=== PATIENT | male | born 1965 | race Caucasian/White ===

== ENCOUNTER 2016-12-24 09:20 | Inpatient (IN) | payer OTHER ==
[2016-12-24 10:20] VITALS: BMI 22.1
[2016-12-24] MEDS ORDERED: chlordiazePOXIDE HCL 25 MG CAPSULE PO SCH (11:00)
--- NOTE | 2016-12-24 11:26 | HP ---
CIWA Score - CIWA Score Nausea/Vomitin-No Nausea/No Vomiting Muscle Tremors: 4-Moderate,w/Arms Extend Anxiety: 4-Mod. Anxious/Guarded Agitation: 4-Moderately Restless Paroxysmal Sweats: 1-Minimal Palms Moist Orientation: 0-Oriented Tacttile Disturbances: 3-Moderate Itch/Numb/Burn Auditory Disturbances: 0-None Visual Disturbances: 0-None Headache: 0-None Present CIWA-Ar Total Score: 16 Admission ROS BHS - HPI Chief Complaint: DETOX TX FOR ALCOHOL DEPENDENCE Allergies/Adverse Reactions: Allergies Allergy/AdvReac Type Severity Reaction Status Date / Time No Known Allergies Allergy Verified 12/24/16 10:33 History of Present Illness: 51 Y/O H/M WITH A HX OF ALCOHOL,COCAINE AND MARIJUANA DEPENDENCE SEEKING DETOX [place] Exam Limitations: No Limitations - Ebola screening Have you traveled outside of the country in the last 21 days: No Have you had contact with anyone from an Ebola affected area: No Have you been sick,other than usual withdrawal symptoms: No Do you have a fever: No - Review of Systems Constitutional: Chills, Loss of Appetite, Night Sweats, Changes in sleep, Unintentional Wgt. Loss EENT: reports: Nose Congestion, Dental Problems (MISSING TEETH) Respiratory: reports: No Symptoms reported Cardiac: reports: Lightheadedness GI: reports: No Symptoms Reported : reports: No Symptoms Reported Musculoskeletal: reports: Back Pain, Joint Pain, Muscle Pain Integumentary: reports: No Symptoms Reported Neuro: reports: Headache, Tremors, Unsteady Gait, Dizziness Endocrine: reports: No Symptoms Reported Hematology: reports: No Symptoms Reported Psychiatric: reports: Orientated x3, Agitated, Anxious, Depressed Other Systems: Reviewed and Negative Patient History - Patient Medical History Hx Anemia: No Hx Asthma: No Hx Chronic Obstructive Pulmonary Disease (COPD): No Hx Cancer: No Hx Cardiac Disorders: No Hx Congestive Heart Failure: No Hx Hypertension: No Hx Hypercholesterolemia: Yes (no med) Hx Pacemaker: No HX Cerebrovascular Accident: No Hx Seizures: No Hx Dementia: No Hx Diabetes: Yes (NIDDM) Hx Gastrointestinal Disorders: No Hx Liver Disease: No Hx Genitourinary Disorders: No Hx Sexually Transmitted Disorders: No Hx Renal Disease (ESRD): No Hx Thyroid Disease: No Hx Human Immunodeficiency Virus (HIV): No (last tested 10/06) Hx Hepatitis C: No Hx Depression: No Hx Suicide Attempt: No Hx Bipolar Disorder: No Hx Schizophrenia: Yes (ON MED) - Patient Surgical History Past Surgical History: Yes Hx Neurologic Surgery: No Hx Cataract Extraction: No Hx Cardiac Surgery: No Hx Lung Surgery: No Hx Breast Surgery: No Hx Breast Biopsy: No Hx Abdominal Surgery: No Hx Appendectomy: No Hx Cholecystectomy: No Hx Genitourinary Surgery: No Hx Orthopedic Surgery: Yes (fx, left knee) Anesthesia Reaction: No - PPD History Previous Implant?: Yes Documented Results: Negative w/proof Implanted On Prior R Admission?: Yes Date: 12/31/15 Results: 0 mm PPD to be Administered?: Yes - Reproductive History Patient is a Female of Child Bearing Age (11 -55 yrs old): No (MALE) - Smoking Cessation Smoking history: Current every day smoker Have you smoked in the past 12 months: Yes Aproximately how many cigarettes per day: 20 Cigars Per Day: 0 Hx Chewing Tobacco Use: No Initiated information on smoking cessation: Yes 'Breaking Loose' booklet given: 12/24/16 - Substance & Tx. History Hx Alcohol Use: Yes (RUM/BEER) Hx Substance Use: Yes (CRACK) Substance Use Type: Alcohol, Cocaine Hx Substance Use Treatment: Yes ([facility]) - Substances Abused Crack Route: Smoking Frequency: Daily Amount used: $200 Age of first use: 21 Date of Last Use: 12/23/16 Alcohol-rum/beer Route: Oral Frequency: Daily Amount used: 2 pts./1-6 pk. Age of first use: 13 Date of Last Use: 12/23/16 Family Disease History - Family Disease History Family Disease History: Heart Disease: Mother ( at age 69) Admission Physical Exam S - Vital Signs Vital Signs: Vital Signs - 24 hr 12/24/16 10:16 Temperature 96.4 F L Pulse Rate 81 Respiratory 18 Rate Blood Pressure 121/74 - Physical General Appearance: Yes: Moderate Distress, Irritable, Anxious HEENTM: Yes: EOMI, Normocephalic, JAMILA, Pharynx Normal, Nasal Congestion Respiratory: Yes: Chest Non-Tender, Lungs Clear, Normal Breath Sounds, No Respiratory Distress Neck: Yes: No masses,lesions,Nodules, Supple, Trachea in good position Breast: Yes: Breast Exam Deferred Cardiology: Yes: Regular Rhythm, Regular Rate, S1, S2 Abdominal: Yes: Normal Bowel Sounds, Non Tender, Flat, Soft Genitourinary: Yes: Other (N/C) Back: Yes: Within Normal Limits Musculoskeletal: Yes: full range of Motion, Gait Steady Extremities: Yes: Normal Range of Motion, Non-Tender, Tremors Neurological: Yes: 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, Fully Oriented, Alert Integumentary: Yes: Dry, Warm Lymphatic: Yes: Within Normal Limits - Diagnostic (1) Alcohol dependence with uncomplicated withdrawal Current Visit: Yes Status: Acute (2) Cannabis dependence Current Visit: No Status: Suspected (3) H/O schizophrenia Current Visit: Yes Status: Chronic (4) DM (diabetes mellitus), type 2 Current Visit: Yes Status: Chronic Qualifiers: Diabetes mellitus complication status: without complication Qualified Code(s): E11.9 - Type 2 diabetes mellitus without complications (5) Hypercholesterolemia Current Visit: Yes Status: Chronic (6) Nicotine dependence Current Visit: Yes Status: Acute Qualifiers: Nicotine product type: cigarettes Substance use status: in withdrawal Qualified Code(s): F17.213 - Nicotine dependence, cigarettes, with withdrawal Cleared for Admission [facility] - Detox or Rehab [facility] Level of Care: Medically Managed Detox Regimen/Protocol: Librium [facility] Breath Alcohol Content Breath Alcohol Content: 0 Urine Drug Screen - Results Drug Screen Negative: No Urine Drug Screen Results: YOLANDA-Cocaine, BZO-Benzodiazepines
[2016-12-24] MEDS ORDERED: guaiFENesin/D-METHORPHAN HB 10 ML UNIT-DOSE CUPS PO PRN (11:33)
[2016-12-24] MEDS ORDERED: chlordiazePOXIDE HCL 25 MG CAPSULE PO PRN (11:33)
[2016-12-24] MEDS ORDERED: NICOTINE POLACRILEX 4 MG GUM BC PRN (11:33)
[2016-12-24] MEDS ORDERED: ACETAMINOPHEN 325 MG TABLET (FP) PO PRN (11:33)
[2016-12-24] MEDS ORDERED: LOPERAMIDE HCL 2 MG CAPSULE PO PRN (11:33)
[2016-12-24] MEDS ORDERED: MAGNESIUM HYDROX 2400MG/30ML ORAL SUSPENSION 30 ML CUP PO PRN (11:33)
[2016-12-24] MEDS ORDERED: hydrOXYzine PAMOATE 25 MG CAPSULE (FP) PO PRN (11:33)
[2016-12-24] MEDS ORDERED: IBUPROFEN 400 MG TABLET (FP) PO PRN (11:33)
[2016-12-24] MEDS ORDERED: MENTHOL/PHENOL 1 EACH UD MM PRN (11:33)
[2016-12-24] MEDS ORDERED: diphenhydrAMINE HCL 50 MG CAPSULE PO PRN (11:33)
[2016-12-24] MEDS ORDERED: MAGNESIUM CITRATE 300 ML BOTTLE PO PRN (11:33)
[2016-12-24] MEDS ORDERED: MAG HYDROX/AL HYDROX/SIMETH 30 ML UNIT-DOSE CUP PO PRN (11:33)
[2016-12-24] MEDS ORDERED: P-EPHED 60MG/TRIPROLIDI 2.5MG TABLET PO PRN (11:33)
[2016-12-24] MEDS ORDERED: chlordiazePOXIDE HCL 25 MG CAPSULE PO ONE (12:15)
[2016-12-24] MEDS: NICOTINE 21 MG/24 HOURS TOPICAL PATCH TD SCH (13:13)
[2016-12-24 14:59] LABS: HIV 1 & 2 AB NEGATIVE; HIV 1 AGp24 NEGATIVE
[2016-12-24] MEDS: chlordiazePOXIDE HCL 25 MG CAPSULE PO SCH ×2 (17:52→22:08)
[2016-12-24] MEDS: metFORMIN HCL 500 MG TABLET (FP) PO SCH (17:52)
[2016-12-24] MEDS: THIAMINE HCL 100 MG TABLET (FP) PO SCH (22:08)
[2016-12-25] MEDS: chlordiazePOXIDE HCL 25 MG CAPSULE PO SCH ×4 (05:29→22:20)
[2016-12-25] MEDS: metFORMIN HCL 500 MG TABLET (FP) PO SCH ×2 (07:41→17:48)
[2016-12-25 09:49] LABS: MCH 28.9 pg (25.7-33.7); MCHC 33.2 g/dl (32.0-35.9); MEAN CELL VOLUME 87.1 fl (80-96); MEAN PLT VOLUME 8.4 fl (7.5-11.1); PLATELET COUNT 204 K/MM3 (134-434); RDW 13.9 % (11.9-15.9); WHITE BLOOD COUNT 6.3 K/mm3 (4.0-10.0)
--- NOTE | 2016-12-25 10:07 | PN ---
BHS CIWA - CIWA Score Nausea/Vomitin Muscle Tremors: 2 Anxiety: 3 Agitation: 2 Paroxysmal Sweats: 3 Orientation: 0-Oriented Tacttile Disturbances: 2-Mild Itch/Numbness/Burn Auditory Disturbances: 0-None Visual Disturbances: 0-None Headache: 0-None Present CIWA-Ar Total Score: 14 BHS Progress Note (SOAP) Subjective: sweats, shakes ,bodyaches,palms rash r>l Objective: 12/25/16 10:05 Vital Signs Temperature 97.5 F L 12/25/16 06:25 Pulse Rate 83 12/25/16 06:25 Respiratory Rate 16 12/25/16 06:25 Blood Pressure 113/69 12/25/16 06:25 O2 Sat by Pulse Oximetry (%) Laboratory Tests 12/24/16 12/24/16 12/24/16 10:30 10:53 16:22 WBC RBC Hgb Hct MCV MCHC RDW Plt Count MPV POC Glucometer 169 117 HIV 1&2 Antibody Screen Negative HIV P24 Antigen Negative 12/25/16 12/25/16 05:28 06:00 WBC 6.3 D RBC 4.72 Hgb 13.6 Hct 41.1 MCV 87.1 MCHC 33.2 RDW 13.9 Plt Count 204 MPV 8.4 POC Glucometer 116 HIV 1&2 Antibody Screen HIV P24 Antigen pt aox3 in nad lying in bed pending labs Assessment: 12/25/16 10:06 witthdrawal sx's dm exfoliative rash Plan: cont. detox increase fluids daily bgm
[2016-12-25 10:09] LABS: ALBUMIN 3.9 g/dl (3.4-5.0); ALK PHOS 95 U/L (45-117); ANION GAP 11 (8-16); BILIRUBIN,TOTAL 0.6 mg/dL (0.2-1.0); CALCIUM 8.8 mg/dL (8.5-10.1); CO2 26 mmol/L (21-32); CREATININE 0.8 mg/dL (0.7-1.3); GLUCOSE,RANDOM 148 mg/dL (74-106); SGOT/AST 21 U/L (15-37); SGPT/ALT 46 U/L (12-78); TOT PROT 7.2 g/dl (6.4-8.2)
--- NOTE | 2016-12-25 10:30 | CONSULT ---
[facility] Psychiatric Consult - Data Date of interview: 12/25/16 Admission source: [facility] Identifying data: [facility] this 51 y/o male seeking detox treatment for alcohol,cocaine and cannabis dependence.Patient is single without children,homeless,unemployed and supported on [facility] benefits. Substance Abuse History: - Smoking Cessation. Smoking history: Current every day smoker. Have you smoked in the past 12 months: Yes. Aproximately how many cigarettes per day: 20. Cigars Per Day: 0. Hx Chewing Tobacco Use: No. Initiated information on smoking cessation: Yes. 'Breaking Loose' booklet given : 12/24/16. - Substance & Tx. History. Hx Alcohol Use: Yes (RUM/BEER). Hx Substance Use: Yes (CRACK). Substance Use Type: Alcohol, Cocaine. Hx Substance Use Treatment: Yes ([facility]). - Substances Abused. Crack. Route: Smoking. Frequency: Daily. Amount used: $200. Age of first use: 21. Date of Last Use: 12/23/16. Alcohol-rum/beer. Route: Oral. Frequency: Daily. Amount used: 2 pts./1-6 pk. Age of first use: 13. Date of Last Use: . Confirmed by patient. Medical History: Diabetes mellitus and hypercholesterolemia. Psychiatric History: Diagnosed with Schizophrenia (1985).History of multiple psychiatric hospitalizations.Prescribed geodon 40 mg/day + cogentin 2 mg/day + ambien 10 mg/hs.Mr Lagos sees a psychiatrist at [facility],a community drug program in the [place].Last took these medications two days ago.Patient denies history of suicide attempts. Physical/Sexual Abuse/Trauma History: Patient denies. Additional Comment: Urine Drug Screen Results: YOLANDA-Cocaine, BZO- Benzodiazepines.Noted. Mental Status Exam - Mental Status Exam Alert and Oriented to: Time, Place, Person Cognitive Function: Good Patient Appearance: Well Groomed Mood: Hopeful, Euthymic Affect: Appropriate, Normal Range Patient Behavior: Fatigued, Appropriate, Cooperative Speech Pattern: Clear (in georgian;speaks fair albanian ) Voice Loudness: Normal Thought Process: Goal Oriented Thought Disorder: Not Present Hallucinations: Denies Suicidal Ideation: Denies Homicidal Ideation: Denies Insight/Judgement: Poor Sleep: Fair Appetite: Good Muscle strength/Tone: Normal Gait/Station: Normal Psychiatric Findings - Problem List ([place] 1, 2,3) (1) Alcohol dependence with uncomplicated withdrawal Current Visit: Yes Status: Acute (2) Cannabis dependence Current Visit: Yes Status: Acute (3) Cocaine dependence Current Visit: Yes Status: Acute (4) Nicotine dependence Current Visit: Yes Status: Acute Qualifiers: Nicotine product type: cigarettes Substance use status: in withdrawal Qualified Code(s): F17.213 - Nicotine dependence, cigarettes, with withdrawal (5) Schizophrenia Current Visit: Yes Status: Chronic (6) DM (diabetes mellitus), type 2 Current Visit: Yes Status: Chronic Qualifiers: Diabetes mellitus complication status: without complication (7) Hypercholesterolemia Current Visit: Yes Status: Chronic - Initial Treatment Plan Initial Treatment Plan: Psychoeducation.Detoxification.Medications : geodon 40 mg po hs + cogentin 1 mg po hs.Side effects/benefits discussed with patient.Agrees with careplan.Observation.
[2016-12-25] MEDS: PRENATAL VITAMINS W/ FOLIC ACID TABLET (FP) PO SCH (10:56)
[2016-12-25] MEDS: NICOTINE 21 MG/24 HOURS TOPICAL PATCH TD SCH (10:58)
[2016-12-25 14:44] LABS: URINE APPEARANCE CLEAR; URINE BILIRUBIN NEGATIVE (NEGATIVE); URINE BLOOD NEGATIVE (NEGATIVE); URINE COLOR COLORLESS; URINE GLUCOSE (UA) NEGATIVE (NEGATIVE); URINE KETONE NEGATIVE (NEGATIVE); URINE LEUK ESTERASE NEGATIVE (NEGATIVE); URINE NITRITE NEGATIVE (NEGATIVE); URINE PROTEIN NEGATIVE (NEGATIVE); URINE UROBILINOGEN NEGATIVE E.U./dl (0.2-1.0)
[2016-12-25] MEDS: ZIPRASIDONE 40 MG CAPSULE (FP) PO SCH (22:20)
[2016-12-25] MEDS: THIAMINE HCL 100 MG TABLET (FP) PO SCH (22:20)
[2016-12-25] MEDS: BENZTROPINE MESYLATE 1 MG TABLET (FP) PO SCH (22:20)
[2016-12-25] MEDS: MINERAL OIL/PETROLAT/WATER TOPICAL CREAM 113 GM JAR TP SCH (22:22)
--- NOTE | 2016-12-25 23:40 | EKG ---
Test Reason : Blood Pressure : / mmHG Vent. Rate : 076 BPM Atrial Rate : 076 BPM P-R Int : 176 ms QRS Dur : 094 ms QT Int : 366 ms P-R-T Axes : 051 048 053 degrees QTc Int : 411 ms NORMAL SINUS RHYTHM POSSIBLE LEFT ATRIAL ENLARGEMENT SEPTAL INFARCT , AGE UNDETERMINED ABNORMAL ECG NO PREVIOUS ECGS AVAILABLE Confirmed by CHRIS SUMMERS, NIESHA ([id number]) on 12/25/2016 11:39:35 PM Referred By: Patel Shaver Confirmed By:NIESHA PEREZ MD
[2016-12-26] MEDS: chlordiazePOXIDE HCL 25 MG CAPSULE PO SCH ×2 (07:35→10:11)
[2016-12-26] MEDS: metFORMIN HCL 500 MG TABLET (FP) PO SCH ×2 (08:07→16:46)
[2016-12-26] MEDS ORDERED: ONDANSETRON *ODT* 4 MG TABLET SL PRN (09:50)
--- NOTE | 2016-12-26 09:50 | PN ---
[facility] CIWA - CIWA Score Nausea/Vomitin-No Nausea/No Vomiting Muscle Tremors: 3 Anxiety: 3 Agitation: 3 Paroxysmal Sweats: 3 Orientation: 0-Oriented Tacttile Disturbances: 0-None Auditory Disturbances: 0-None Visual Disturbances: 0-None Headache: 0-None Present CIWA-Ar Total Score: 12 S Progress Note (SOAP) Subjective: sweats nausea diarrhea Objective: 12/26/16 09:48 Vital Signs Temperature 97.7 F 12/26/16 06:00 Pulse Rate 71 12/26/16 06:00 Respiratory Rate 18 12/26/16 06:00 Blood Pressure 106/61 12/26/16 06:00 O2 Sat by Pulse Oximetry (%) Laboratory Tests 12/24/16 12/24/16 12/24/16 10:30 10:53 16:22 WBC RBC Hgb Hct MCV MCHC RDW Plt Count MPV Sodium Potassium Chloride Carbon Dioxide Anion Gap BUN Creatinine Creat Clearance w eGFR POC Glucometer 169 117 Random Glucose Calcium Total Bilirubin AST ALT Alkaline Phosphatase Total Protein Albumin Urine Color Urine Appearance Urine pH Ur Specific [place] Urine Protein Urine Glucose (UA) Urine Ketones Urine Blood Urine Nitrite Urine Bilirubin Urine Urobilinogen Ur Leukocyte Esterase RPR Titer HIV 1&2 Antibody Screen Negative HIV P24 Antigen Negative 12/25/16 12/25/16 12/25/16 05:28 06:00 06:00 WBC 6.3 D RBC 4.72 Hgb 13.6 Hct 41.1 MCV 87.1 MCHC 33.2 RDW 13.9 Plt Count 204 MPV 8.4 Sodium 136 Potassium 4.4 Chloride 99 Carbon Dioxide 26 D Anion Gap 11 BUN 17 Creatinine 0.8 Creat Clearance w eGFR > 60 POC Glucometer 116 Random Glucose 148 H Calcium 8.8 Total Bilirubin 0.6 D AST 21 D ALT 46 D Alkaline Phosphatase 95 Total Protein 7.2 Albumin 3.9 Urine Color Urine Appearance Urine pH Ur Specific [place] Urine Protein Urine Glucose (UA) Urine Ketones Urine Blood Urine Nitrite Urine Bilirubin Urine Urobilinogen Ur Leukocyte Esterase RPR Titer HIV 1&2 Antibody Screen HIV P24 Antigen 12/25/16 12/25/16 12/25/16 06:00 09:05 16:21 WBC RBC Hgb Hct MCV MCHC RDW Plt Count MPV Sodium Potassium Chloride Carbon Dioxide Anion Gap BUN Creatinine Creat Clearance w eGFR POC Glucometer 104 Random Glucose Calcium Total Bilirubin AST ALT Alkaline Phosphatase Total Protein Albumin Urine Color Colorless Urine Appearance Clear Urine pH 5.0 D Ur Specific [place] 1.009 Urine Protein Negative Urine Glucose (UA) Negative Urine Ketones Negative Urine Blood Negative Urine Nitrite Negative Urine Bilirubin Negative Urine Urobilinogen Negative Ur Leukocyte Esterase Negative RPR Titer Nonreactive HIV 1&2 Antibody Screen HIV P24 Antigen 12/26/16 06:25 WBC RBC Hgb Hct MCV MCHC RDW Plt Count MPV Sodium Potassium Chloride Carbon Dioxide Anion Gap BUN Creatinine Creat Clearance w eGFR POC Glucometer 86 Random Glucose Calcium Total Bilirubin AST ALT Alkaline Phosphatase Total Protein Albumin Urine Color Urine Appearance Urine pH Ur Specific [place] Urine Protein Urine Glucose (UA) Urine Ketones Urine Blood Urine Nitrite Urine Bilirubin Urine Urobilinogen Ur Leukocyte Esterase RPR Titer HIV 1&2 Antibody Screen HIV P24 Antigen awake/alert ambulating no acute distress Assessment: 12/26/16 09:50 withdrawal sx Plan: continue detox increase fluids immodium prn zofran prn
[2016-12-26] MEDS: PRENATAL VITAMINS W/ FOLIC ACID TABLET (FP) PO SCH (10:11)
[2016-12-26] MEDS: MINERAL OIL/PETROLAT/WATER TOPICAL CREAM 113 GM JAR TP SCH ×2 (10:12→22:24)
[2016-12-26] MEDS: NICOTINE 21 MG/24 HOURS TOPICAL PATCH TD SCH (10:12)
[2016-12-26] MEDS: chlordiazePOXIDE 5 MG CAPSULE PO SCH ×2 (16:48→22:26)
[2016-12-26] MEDS: BENZTROPINE MESYLATE 1 MG TABLET (FP) PO SCH (22:23)
[2016-12-26] MEDS: ZIPRASIDONE 40 MG CAPSULE (FP) PO SCH (22:23)
[2016-12-26] MEDS: THIAMINE HCL 100 MG TABLET (FP) PO SCH (22:23)
[2016-12-27] MEDS: chlordiazePOXIDE 5 MG CAPSULE PO SCH ×2 (06:21→10:21)
[2016-12-27] MEDS: metFORMIN HCL 500 MG TABLET (FP) PO SCH ×2 (07:22→17:32)
--- NOTE | 2016-12-27 09:35 | PN ---
BHS Progress Note (SOAP) Subjective: sweats Objective: 12/27/16 09:34 Vital Signs Temperature 97.6 F 12/27/16 06:24 Pulse Rate 83 12/27/16 06:24 Respiratory Rate 16 12/27/16 06:24 Blood Pressure 103/68 12/27/16 06:24 O2 Sat by Pulse Oximetry (%) awake/alert ambulating no acute distress Assessment: 12/27/16 09:34 withdrawal sx Plan: continue detox increase fluids d/c in am
[2016-12-27] MEDS: NICOTINE 21 MG/24 HOURS TOPICAL PATCH TD SCH (10:21)
[2016-12-27] MEDS: PRENATAL VITAMINS W/ FOLIC ACID TABLET (FP) PO SCH (10:21)
[2016-12-27] MEDS: MINERAL OIL/PETROLAT/WATER TOPICAL CREAM 113 GM JAR TP SCH ×2 (10:21→22:09)
[2016-12-27] MEDS: chlordiazePOXIDE HCL 10 MG CAPSULE PO SCH ×2 (17:32→22:09)
[2016-12-27] MEDS: BENZTROPINE MESYLATE 1 MG TABLET (FP) PO SCH (22:09)
[2016-12-27] MEDS: THIAMINE HCL 100 MG TABLET (FP) PO SCH (22:09)
[2016-12-27] MEDS: ZIPRASIDONE 40 MG CAPSULE (FP) PO SCH (22:09)
[2016-12-28] MEDS: metFORMIN HCL 500 MG TABLET (FP) PO SCH (06:45)
[2016-12-28] MEDS: chlordiazePOXIDE HCL 10 MG CAPSULE PO SCH (06:46)
--- NOTE | 2016-12-28 08:32 | DS ---
[facility] Detox Discharge Summary Admission Date: 12/24/16 Discharge Date: 12/28/16 - History Present History: Alcohol Dependence, Cannabis Dependence, Cocaine Dependence - Physical Exam Results Vital Signs: Vital Signs Temperature 98.1 F 12/28/16 06:37 Pulse Rate 81 12/28/16 06:37 Respiratory Rate 16 12/28/16 06:37 Blood Pressure 141/74 12/28/16 06:37 O2 Sat by Pulse Oximetry (%) - Treatment Hospital Course: Detox Protocol Followed, Detoxed Safely, Responded well, Discharged Condition Good, Rehab Referral Accepted - Medication Discharge Medications: Ambulatory Orders Metformin HCl [Glucophage -] 500 mg PO BID 01/07/14 Benztropine Mesylate [Cogentin -] 2 mg PO HS 12/24/16 Ziprasidone [Geodon -] 40 mg PO HS 12/24/16 Zolpidem Tartrate [Ambien] 10 mg PO HS 12/24/16 Benztropine Mesylate [Cogentin -] 1 mg PO HS #30 tablet 12/25/16 Ziprasidone [Geodon] 40 mg NR HS #30 capsule 12/25/16 - Diagnosis (1) Alcohol dependence with uncomplicated withdrawal Current Visit: Yes Status: Chronic (2) Cannabis dependence Current Visit: Yes Status: Chronic (3) Cocaine dependence Current Visit: Yes Status: Chronic Qualifiers: Substance use status: uncomplicated Qualified Code(s): F14.20 - Cocaine dependence, uncomplicated (4) Nicotine dependence Current Visit: Yes Status: Chronic Qualifiers: Nicotine product type: cigarettes Substance use status: uncomplicated Qualified Code(s): F17.210 - Nicotine dependence, cigarettes, uncomplicated (5) DM (diabetes mellitus), type 2 Current Visit: Yes Status: Chronic Qualifiers: Diabetes mellitus complication status: without complication (6) H/O schizophrenia Current Visit: Yes Status: Chronic (7) Hypercholesterolemia Current Visit: Yes Status: Chronic (8) Schizophrenia Current Visit: Yes Status: Chronic (9) Excoriation of scalp Current Visit: No Status: Acute Qualifiers: Encounter type: initial encounter Qualified Code(s): S00.01XA - Abrasion of scalp, initial encounter (10) Rash Current Visit: No Status: Acute (11) Syncope Current Visit: No Status: Acute - AMA Did Patient Leave Against Medical Advice: No
[2016-12-28 09:57] VITALS: BP 113/79; PULSE 79; TEMP 98.6
== END 2016-12-28 10:00 | disposition home or self-care (01) | DRG 774 ==
LOC: YASAS 09:20 → Y6N 11:36
PROVIDERS: ADMIT Internal Medicine Addiction Medicine; ATTEND Internal Medicine Addiction Medicine
PROC: HZ2ZZZZ Detoxification Services for Substance Abuse Treatment (ICD-10-PCS; principal; 2016-12-28)
DX: F10.230 Alcohol dependence with withdrawal, uncomplicated (principal); F14.20 Cocaine dependence, uncomplicated; F12.20 Cannabis dependence, uncomplicated; F17.210 Nicotine dependence, cigarettes, uncomplicated; F20.0 Paranoid schizophrenia; E11.9 Type 2 diabetes mellitus without complications; Z79.84 Long term (current) use of oral hypoglycemic drugs; E78.00 Pure hypercholesterolemia, unspecified; R21 Rash and other nonspecific skin eruption; R55 Syncope and collapse; S00.01XA Abrasion of scalp, initial encounter; X58.XXXA Exposure to other specified factors, initial encounter; Y93.89 Activity, other specified; Y92.89 Other specified places as the place of occurrence of the external cause
CPT/HCPCS: 36415; 71020-TC; 80053; 81003; 85027; 86593; 87389; 93005; 93010

== ENCOUNTER 2019-05-03 08:50 | Inpatient (IN) | payer OTHER ==
[2019-05-03 12:24] VITALS: BMI 20.8
--- NOTE | 2019-05-03 13:37 | HP ---
CIWA Score Nausea/Vomitin Muscle Tremors: 2 Anxiety: 2 Agitation: 3 Paroxysmal Sweats: 1-Minimal Palms Moist Orientation: 0-Oriented Tacttile Disturbances: 1-Very Mild Itch/Numbness Auditory Disturbances: 0-None Visual Disturbances: 0-None Headache: 2-Mild CIWA-Ar Total Score: 13 - Admission Criteria [facility] Guidelines: Admission for Medically Managed Detox: Requires at least one of the followin. CIWA greater than 12 2. Seizures within the past 24 hours 3. Delirium tremens within the past 24 hours 4. Hallucinations within the past 24 hours 5. Acute intervention needed for co occurring medical disorder 6. Acute intervention needed for co occurring psychiatric disorder 7. Severe withdrawal that cannot be handled at a lower level of care (continued vomiting, continued diarrhea, abnormal vital signs) requiring intravenous medication and/or fluids 8. Admission ROS S - HPI Chief Complaint: i need help to stop drinking alcohol Allergies/Adverse Reactions: Allergies Allergy/AdvReac Type Severity Reaction Status Date / Time No Known Allergies Allergy Verified 05/03/19 12:15 History of Present Illness: this 53 years old male with alcohol dependence,seeking detox,withdrawal symptom, multiple admissions in detox,last 2017 denied seizure syncope has callus right big toe seen [place] last night history of type 2 dm nicotine dependence 1 pack/day homeless,living on SSI, history of achizophrenia no significant period of sobriety Exam Limitations: No Limitations - Ebola screening Have you traveled outside of the country in the last 21 days: No (N) Have you had contact with anyone from an Ebola affected area: No Do you have a fever: No - Review of Systems Constitutional: Loss of Appetite, Malaise, Night Sweats, Changes in sleep, Weakness, Unintentional Wgt. Loss EENT: reports: Nose Congestion Respiratory: reports: No Symptoms reported Cardiac: reports: No Symptoms Reported GI: reports: Nausea, Abdominal cramping : reports: No Symptoms Reported Musculoskeletal: reports: Back Pain, Muscle Pain Integumentary: reports: Dryness Neuro: reports: Headache, Tremors Endocrine: reports: No Symptoms Reported Hematology: reports: No Symptoms Reported Psychiatric: reports: No Sypmtoms Reported, Judgement Intact, Mood/Affect Appropiate, Orientated x3, other (schizophrenia) Patient History - Patient Medical History Hx Anemia: No Hx Asthma: No Hx Chronic Obstructive Pulmonary Disease (COPD): No Hx Cancer: No Hx Cardiac Disorders: No Hx Congestive Heart Failure: No Hx Hypertension: No Hx Hypercholesterolemia: Yes (no med) Hx Pacemaker: No HX Cerebrovascular Accident: No Hx Seizures: No Hx Dementia: No Hx Diabetes: Yes (NIDDM) Hx Gastrointestinal Disorders: No Hx Liver Disease: No Hx Genitourinary Disorders: No Hx Sexually Transmitted Disorders: No Hx Renal Disease (ESRD): No Hx Thyroid Disease: No Hx Human Immunodeficiency Virus (HIV): No (last tested 2017 ) Hx Hepatitis C: No Hx Depression: No Hx Suicide Attempt: No Hx Bipolar Disorder: No Hx Schizophrenia: Yes (ON MED) Other Medical History: no suicidal,no homicidal - Patient Surgical History Past Surgical History: Yes Hx Neurologic Surgery: No Hx Cataract Extraction: No Hx Cardiac Surgery: No Hx Lung Surgery: No Hx Breast Surgery: No Hx Breast Biopsy: No Hx Abdominal Surgery: No Hx Appendectomy: No Hx Cholecystectomy: No Hx Genitourinary Surgery: No Hx Section: No Hx Orthopedic Surgery: Yes (fx, left knee) Anesthesia Reaction: No - PPD History Date: 12/26/16 Results: 0 mm - Smoking Cessation Smoking history: Current every day smoker Have you smoked in the past 12 months: Yes Aproximately how many cigarettes per day: 20 Cigars Per Day: 0 Hx Chewing Tobacco Use: No Initiated information on smoking cessation: Yes 'Breaking Loose' booklet given: 05/03/19 - Substance & Tx. History Hx Alcohol Use: Yes Hx Substance Use: No Substance Use Type: Alcohol Hx Substance Use Treatment: Yes (2018 did not recall facility) - Substances abused Alcohol Substance route: Oral Frequency: Daily Amount used: 1 pint of Bacardi/day Age of first use: 21 Date of last use: 05/02/19 Family Disease History - Family Disease History Family Disease History: Heart Disease: Mother ( at age 69) Admission Physical Exam BHS - Vital Signs Vital Signs: Vital Signs - 24 hr 05/03/19 12:21 Temperature 98.0 F Pulse Rate 89 Respiratory 18 Rate Blood Pressure 105/72 - Physical General Appearance: Yes: Moderate Distress, Tremorous, Irritable, Sweating, Anxious HEENTM: Yes: Normal ENT Inspection, JAMILA, Pharynx Normal Respiratory: Yes: Lungs Clear, Normal Breath Sounds, No Respiratory Distress Neck: Yes: No masses,lesions,Nodules, Supple, Trachea in good position Breast: Yes: Within Normal Limits Cardiology: Yes: Within Normal Limits, Regular Rhythm, Regular Rate, S1, S2 Abdominal: Yes: Within Normal Limits, Normal Bowel Sounds, Non Tender, Flat, Soft Genitourinary: Yes: Within Normal Limits Back: Yes: Muscle Spasm Musculoskeletal: Yes: Back pain, Muscle Pain Extremities: Yes: Tremors, Other (scar in left knee) Neurological: Yes: Within Normal Limits, 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, Fully Oriented, Alert, Motor Strength 5/5 Integumentary: Yes: Dry - Diagnostic (1) Syncope Current Visit: No Status: Acute (2) Alcohol dependence with uncomplicated withdrawal Current Visit: No Status: Chronic (3) DM (diabetes mellitus), type 2 Current Visit: No Status: Chronic Qualifiers: Diabetes mellitus complication status: without complication (4) H/O schizophrenia Current Visit: No Status: Chronic (5) Hypercholesterolemia Current Visit: No Status: Chronic (6) Nicotine dependence Current Visit: No Status: Chronic Qualifiers: Nicotine product type: cigarettes Substance use status: uncomplicated Qualified Code(s): F17.210 - Nicotine dependence, cigarettes, uncomplicated Cleared for Admission S - Detox or Rehab [facility] Level of Care: Medically Managed Detox Regimen/Protocol: Librium Breathalyzer - Breathalyzer Breathalyzer: 0 Urine Drug Screen - Test Device Lot number: [id number] Expiration date: 01/20/21 - Control Is test valid?: Yes - Results Drug screen NEGATIVE: No Urine drug screen results: MOP-Opiates Inpatient Rehab Admission - Rehab Decision to Admit Inpatient rehab admission?: No
[2019-05-03] MEDS ORDERED: MAG HYDROX/AL HYDROX/SIMETH 30 ML UNIT-DOSE CUP PO PRN (13:43)
[2019-05-03] MEDS ORDERED: METHOCARBAMOL 500 MG TABLET PO PRN (13:43)
[2019-05-03] MEDS ORDERED: hydrOXYzine PAMOATE 25 MG CAPSULE (FP) PO PRN (13:43)
[2019-05-03] MEDS ORDERED: ACETAMINOPHEN 325 MG TABLET (FP) PO PRN ×2 (13:43)
[2019-05-03] MEDS ORDERED: BISMUTH SUBSALICYLATE 524 MG/30 ML UD PO PRN (13:43)
[2019-05-03] MEDS ORDERED: MENTHOL/PHENOL 1 EACH UD MM PRN (13:43)
[2019-05-03] MEDS ORDERED: IBUPROFEN 400 MG TABLET (FP) PO PRN (13:43)
[2019-05-03] MEDS ORDERED: MELATONIN 5 MG TABLETS PO PRN (13:43)
[2019-05-03] MEDS ORDERED: MAGNESIUM HYDROX 2400MG/30ML ORAL SUSPENSION 30 ML CUP PO PRN (13:43)
[2019-05-03] MEDS ORDERED: MAGNESIUM CITRATE 300 ML BOTTLE PO PRN (13:43)
[2019-05-03] MEDS ORDERED: chlordiazePOXIDE HCL 25 MG CAPSULE PO PRN (13:43)
[2019-05-03] MEDS ORDERED: NICOTINE 21 MG/24 HOURS TOPICAL PATCH TD SCH (14:00)
[2019-05-03] MEDS: chlordiazePOXIDE HCL 25 MG CAPSULE PO SCH ×3 (18:37→23:22)
[2019-05-03] MEDS ORDERED: THIAMINE HCL 100 MG TABLET (FP) PO SCH (22:00)
[2019-05-04 06:19] VITALS: BP 130/77; PULSE 77; TEMP 98.9
[2019-05-04] MEDS: chlordiazePOXIDE HCL 25 MG CAPSULE PO SCH (07:57)
[2019-05-04] MEDS ORDERED: PRENATAL VITAMINS W/ FOLIC ACID TABLET (FP) PO SCH (10:00)
[2019-05-04 10:26] LABS: ALBUMIN 3.9 g/dl (3.4-5.0); BILIRUBIN,TOTAL 0.7 mg/dL (0.2-1); BLOOD UREA NITROGEN 12.9 mg/dL (7-18); CALCIUM 8.9 mg/dL (8.5-10.1); CREATININE 0.7 mg/dL (0.55-1.3); POTASSIUM 4.4 mmol/L (3.5-5.1); TOT PROT 7.3 g/dl (6.4-8.2)
[2019-05-04 12:19] LABS: HEMOGLOBIN 14.3 GM/dL (11.7-16.9); MCH 29.1 pg (25.7-33.7); MCHC 33.2 g/dl (32.0-35.9); MEAN CELL VOLUME 87.6 fl (80-96); MEAN PLT VOLUME 8.1 fl (7.5-11.1); PLATELET COUNT 209 K/MM3 (134-434); RBC 4.91 M/mm3 (4.00-5.60); RDW 14.5 % (11.9-15.9); WHITE BLOOD COUNT 9.6 K/mm3 (4.0-10.0)
[2019-05-04 13:27] LABS: HYALINE CASTS 18 /lpf (0-8); PH,URINE 5.5 (5.0-8.0); URINE APPEARANCE CLEAR; URINE BACTERIA 19.1 /hpf (NEGATIVE); URINE BILIRUBIN NEGATIVE (NEGATIVE); URINE COLOR YELLOW; URINE GLUCOSE (UA) NEGATIVE (NEGATIVE); URINE KETONE NEGATIVE (NEGATIVE); URINE LEUK ESTERASE TRACE (NEGATIVE); URINE NITRITE NEGATIVE (NEGATIVE); URINE PROTEIN NEGATIVE (NEGATIVE); URINE RBC 1 /hpf (0-4); URINE UROBILINOGEN 0.2 mg/dL (0.2-1.0); URINE WBC 5 /hpf (0-5)
--- NOTE | 2019-05-04 16:28 | PN ---
S CIWA - CIWA Score Nausea/Vomitin-Mild Nausea/No Vomiting Muscle Tremors: 3 Anxiety: 5 Agitation: 4-Moderately Restless Paroxysmal Sweats: 3 Orientation: 0-Oriented Tacttile Disturbances: 0-None Auditory Disturbances: 0-None Visual Disturbances: 0-None Headache: 0-None Present CIWA-Ar Total Score: 16 BHS Progress Note (SOAP) Subjective: Tremors, Anxious, Agitated, Sweating. Objective: PATIENT A & O X 3, OBSERVED AMBULATING ON UNIT UNASSISTED. IN NO ACUTE DISTRESS. 05/04/19 16:27 Vital Signs Temperature 98.9 F 05/04/19 06:00 Pulse Rate 77 05/04/19 06:00 Respiratory Rate 16 05/04/19 06:00 Blood Pressure 130/77 05/04/19 06:00 O2 Sat by Pulse Oximetry (%) Laboratory Tests 05/03/19 05/03/19 05/04/19 13:23 17:01 07:00 WBC 9.6 RBC 4.91 Hgb 14.3 Hct 43.0 MCV 87.6 MCH 29.1 MCHC 33.2 RDW 14.5 Plt Count 209 MPV 8.1 Sodium Potassium Chloride Carbon Dioxide Anion Gap BUN Creatinine Est GFR (CKD-EPI)AfAm Est GFR (CKD-EPI)NonAf POC Glucometer 81 132 Random Glucose Calcium Total Bilirubin AST ALT Alkaline Phosphatase Total Protein Albumin Urine Color Urine Appearance Urine pH Ur Specific [place] Urine Protein Urine Glucose (UA) Urine Ketones Urine Blood Urine Nitrite Urine Bilirubin Urine Urobilinogen Ur Leukocyte Esterase Urine WBC (Auto) Urine RBC (Auto) Urine Casts (Auto) U Epithel Cells (Auto) Urine Bacteria (Auto) RPR Titer 05/04/19 05/04/19 05/04/19 07:00 07:00 10:10 WBC RBC Hgb Hct MCV MCH MCHC RDW Plt Count MPV Sodium 140 Potassium 4.4 Chloride 104 Carbon Dioxide 32 Anion Gap 4 L BUN 12.9 Creatinine 0.7 Est GFR (CKD-EPI)AfAm 125.75 Est GFR (CKD-EPI)NonAf 108.50 POC Glucometer Random Glucose 113 H Calcium 8.9 Total Bilirubin 0.7 AST 18 ALT 24 Alkaline Phosphatase 70 Total Protein 7.3 Albumin 3.9 Urine Color Yellow Urine Appearance Clear Urine pH 5.5 Ur Specific [place] 1.025 Urine Protein Negative Urine Glucose (UA) Negative Urine Ketones Negative Urine Blood Negative Urine Nitrite Negative Urine Bilirubin Negative Urine Urobilinogen 0.2 Ur Leukocyte Esterase Trace Urine WBC (Auto) 5 Urine RBC (Auto) 1 Urine Casts (Auto) 18 U Epithel Cells (Auto) 3.0 Urine Bacteria (Auto) 19.1 RPR Titer Nonreactive LABS NOTED. Assessment: 05/04/19 16:28 WITHDRAWAL SYMPTOMS. Plan: CONTINUE DETOX.
--- NOTE | 2019-05-04 16:32 | DS ---
[facility] Detox Discharge Summary Admission Date: 05/03/19 Discharge Date: 05/04/19 - History Present History: Alcohol Dependence Additional Comments: DESPITE EFFORTS BY PEN AND PENCIL REPAIRER AND BY NURSING STAFF TO ADDRESS PATIENT'S MEDICAL NEEDS / CONCERNS, PATIENT DOES NOT WISH TO REMAIN TO COMPLETE DETOX REGIMEN. RISKS OF LEAVING DETOX UNIT AGAINST MEDICAL ADVICE AND PRIOR TO COMPLETION OF DETOX REGIMEN EXPLAINED TO PATIENT. PATIENT ADVISED TO GO IMMEDIATELY TO NEAREST ER SHOULD ANY INTOLERABLE WITHDRAWAL / DETOX SYMPTOMS DEVELOP AT ANY TIME. PATIENT VERBALIZED UNDERSTANDING OF ALL INFORMATION / RECOMMENDATIONS PRESENTED TO HIM PRIOR TO DEPARTURE FROM DETOX UNIT. PATIENT LEFT DETOX UNIT IN STABLE MEDICAL CONDITION. Pertinent Past History: Hypercholesterolemia, Type II DM, Schizophrenia, History Of Syncope, Nicotine Dependence. - Physical Exam Results Vital Signs: Vital Signs Temperature 98.9 F 05/04/19 06:00 Pulse Rate 77 05/04/19 06:00 Respiratory Rate 16 05/04/19 06:00 Blood Pressure 130/77 05/04/19 06:00 O2 Sat by Pulse Oximetry (%) Pertinent Admission Physical Exam Findings: WITHDRAWAL SYMPTOMS. Laboratory Tests 05/03/19 05/03/19 05/04/19 13:23 17:01 07:00 WBC 9.6 RBC 4.91 Hgb 14.3 Hct 43.0 MCV 87.6 MCH 29.1 MCHC 33.2 RDW 14.5 Plt Count 209 MPV 8.1 Sodium Potassium Chloride Carbon Dioxide Anion Gap BUN Creatinine Est GFR (CKD-EPI)AfAm Est GFR (CKD-EPI)NonAf POC Glucometer 81 132 Random Glucose Calcium Total Bilirubin AST ALT Alkaline Phosphatase Total Protein Albumin Urine Color Urine Appearance Urine pH Ur Specific [place] Urine Protein Urine Glucose (UA) Urine Ketones Urine Blood Urine Nitrite Urine Bilirubin Urine Urobilinogen Ur Leukocyte Esterase Urine WBC (Auto) Urine RBC (Auto) Urine Casts (Auto) U Epithel Cells (Auto) Urine Bacteria (Auto) RPR Titer 05/04/19 05/04/19 05/04/19 07:00 07:00 10:10 WBC RBC Hgb Hct MCV MCH MCHC RDW Plt Count MPV Sodium 140 Potassium 4.4 Chloride 104 Carbon Dioxide 32 Anion Gap 4 L BUN 12.9 Creatinine 0.7 Est GFR (CKD-EPI)AfAm 125.75 Est GFR (CKD-EPI)NonAf 108.50 POC Glucometer Random Glucose 113 H Calcium 8.9 Total Bilirubin 0.7 AST 18 ALT 24 Alkaline Phosphatase 70 Total Protein 7.3 Albumin 3.9 Urine Color Yellow Urine Appearance Clear Urine pH 5.5 Ur Specific [place] 1.025 Urine Protein Negative Urine Glucose (UA) Negative Urine Ketones Negative Urine Blood Negative Urine Nitrite Negative Urine Bilirubin Negative Urine Urobilinogen 0.2 Ur Leukocyte Esterase Trace Urine WBC (Auto) 5 Urine RBC (Auto) 1 Urine Casts (Auto) 18 U Epithel Cells (Auto) 3.0 Urine Bacteria (Auto) 19.1 RPR Titer Nonreactive LABS NOTED. - Medication Discharge Medications: Ambulatory Orders metFORMIN HCL [Glucophage -] 500 mg PO BID 01/07/14 Benztropine Mesylate [Cogentin -] 2 mg PO HS 12/24/16 Ziprasidone [Geodon -] 40 mg PO HS 12/24/16 - Diagnosis (1) Syncope Status: Acute Qualifiers: Syncope type: unspecified Qualified Code(s): R55 - Syncope and collapse (2) Alcohol dependence with uncomplicated withdrawal Status: Acute (3) DM (diabetes mellitus), type 2 Status: Chronic Qualifiers: Diabetes mellitus residential insulin use: without exterminator use Diabetes mellitus complication status: without complication Qualified Code(s): E11.9 - Type 2 diabetes mellitus without complications (4) H/O schizophrenia Status: Chronic (5) Hypercholesterolemia Status: Chronic (6) Nicotine dependence Status: Chronic Qualifiers: Nicotine product type: cigarettes Substance use status: uncomplicated Qualified Code(s): F17.210 - Nicotine dependence, cigarettes, uncomplicated - AMA Did Patient Leave Against Medical Advice: Yes (PATIENT DID NOT WISH TO REMAIN TO COMPLETE DETOX REGIMEN.)
[2019-05-05] MEDS ORDERED: chlordiazePOXIDE HCL 25 MG CAPSULE PO SCH (05:00)
[2019-05-06] MEDS ORDERED: chlordiazePOXIDE HCL 10 MG CAPSULE PO PRN
[2019-05-06] MEDS ORDERED: chlordiazePOXIDE HCL 10 MG CAPSULE PO SCH (05:00)
[2019-05-07] MEDS ORDERED: chlordiazePOXIDE HCL 10 MG CAPSULE PO SCH (05:00)
[2019-05-08] MEDS ORDERED: chlordiazePOXIDE HCL 10 MG CAPSULE PO ONE (05:00)
== END 2019-05-04 09:05 | disposition left against medical advice (07) | DRG 770 ==
LOC: YASAS 08:50 → Y6N 14:09
PROVIDERS: ADMIT Surgery; ATTEND Surgery
PROC: HZ2ZZZZ Detoxification Services for Substance Abuse Treatment (ICD-10-PCS; principal; 2019-05-03)
DX: F10.230 Alcohol dependence with withdrawal, uncomplicated (principal); F17.210 Nicotine dependence, cigarettes, uncomplicated; F20.9 Schizophrenia, unspecified; E11.9 Type 2 diabetes mellitus without complications; E78.00 Pure hypercholesterolemia, unspecified; Z79.84 Long term (current) use of oral hypoglycemic drugs; Z59.0 Homelessness
CPT/HCPCS: 36415; 80053; 81003; 82962; 85027; 86593

== ENCOUNTER 2019-05-16 09:05 | Inpatient (IN) | payer OTHER ==
[2019-05-16 09:41] VITALS: BMI 21.2
--- NOTE | 2019-05-16 10:22 | HP ---
CIWA Score Nausea/Vomitin-Mild Nausea/No Vomiting Muscle Tremors: 2 Anxiety: 2 Agitation: 0-Normal Activity Paroxysmal Sweats: 1-Minimal Palms Moist Orientation: 0-Oriented Tacttile Disturbances: 2-Mild Itch/Numbness/Burn Auditory Disturbances: 2-Mild Harshness/Frighten Visual Disturbances: 2-Mild Sensitivity Headache: 2-Mild CIWA-Ar Total Score: 14 - Admission Criteria OASAS Guidelines: Admission for Medically Managed Detox: Requires at least one of the followin. CIWA greater than 12 2. Seizures within the past 24 hours 3. Delirium tremens within the past 24 hours 4. Hallucinations within the past 24 hours 5. Acute intervention needed for co occurring medical disorder 6. Acute intervention needed for co occurring psychiatric disorder 7. Severe withdrawal that cannot be handled at a lower level of care (continued vomiting, continued diarrhea, abnormal vital signs) requiring intravenous medication and/or fluids 8. Admission ROS [facility] Chief Complaint: WITHDRAWAL SYMPTOMS Allergies/Adverse Reactions: Allergies Allergy/AdvReac Type Severity Reaction Status Date / Time No Known Allergies Allergy Verified 05/16/19 09:29 History of Present Illness: 53 Y.O. MAN AN EXTENSIVE HISTORY OF ALCOHOL DEPENDENCE IS HERE SEEKING DETOX SERVICES. HE WAS LAST HERE ON 05/03/19 BUT LEFT AMA AFTER ONE DAY. HIS LONGEST PERIOD OF SOBRIETY HAS BEEN 1 YEAR. HE WAS EVALUATED AND TREATED FOR ALCOHOL INTOXICATION YESTERDAY AT [facility] AND WAS TRANSFERRED HERE FOR DETOX SERVICES. Exam Limitations: No Limitations - Ebola screening Have you traveled outside of the country in the last 21 days: No (N) Have you had contact with anyone from an Ebola affected area: No Do you have a fever: No - Review of Systems Constitutional: Diaphoresis, Weakness EENT: reports: Blurred Vision, Double Vision Respiratory: reports: Cough Cardiac: reports: No Symptoms Reported GI: reports: Diarrhea, Nausea : reports: No Symptoms Reported Musculoskeletal: reports: Back Pain Integumentary: reports: No Symptoms Reported Neuro: reports: Headache, Numbness, Tingling, Tremors Endocrine: reports: No Symptoms Reported Hematology: reports: No Symptoms Reported Psychiatric: reports: Orientated x3 Other Systems: Reviewed and Negative Patient History - Patient Medical History Hx Anemia: No Hx Asthma: No Hx Chronic Obstructive Pulmonary Disease (COPD): Yes (Emphysema) Hx Cancer: No Hx Cardiac Disorders: No Hx Congestive Heart Failure: No Hx Hypertension: No Hx Hypercholesterolemia: Yes (Not taking medications ) Hx Pacemaker: No HX Cerebrovascular Accident: No Hx Seizures: No Hx Dementia: No Hx Diabetes: Yes (NIDDM) Hx Gastrointestinal Disorders: No Hx Liver Disease: No Hx Genitourinary Disorders: No Hx Sexually Transmitted Disorders: No Hx Renal Disease (ESRD): No Hx Thyroid Disease: No Hx Human Immunodeficiency Virus (HIV): No (last tested 2017 ) Hx Hepatitis C: No Hx Depression: No Hx Suicide Attempt: No Hx Bipolar Disorder: No Hx Schizophrenia: Yes (ON MED) - Patient Surgical History Past Surgical History: Yes Hx Neurologic Surgery: No Hx Cataract Extraction: No Hx Cardiac Surgery: No Hx Lung Surgery: No Hx Breast Surgery: No Hx Breast Biopsy: No Hx Abdominal Surgery: No Hx Appendectomy: No Hx Cholecystectomy: No Hx Genitourinary Surgery: No Hx Section: No Hx Orthopedic Surgery: Yes (fx, left knee) Anesthesia Reaction: No - PPD History Previous Implant?: Yes Documented Results: Positive w/proof Implanted On Prior R Admission?: Yes Date: 12/26/16 Results: 0 mm PPD to be Administered?: No - Reproductive History Patient is a Female of Child Bearing Age (11 -55 yrs old): No - Smoking Cessation Smoking history: Current every day smoker Have you smoked in the past 12 months: Yes Aproximately how many cigarettes per day: 20 Cigars Per Day: 0 Hx Chewing Tobacco Use: No Initiated information on smoking cessation: Yes 'Breaking Loose' booklet given: 05/16/19 - Substance & Tx. History Hx Alcohol Use: Yes Hx Substance Use: No Substance Use Type: Alcohol Hx Substance Use Treatment: Yes (Multiple detox admissions. Last was 05/04/19. ) - Substances abused Alcohol Substance route: Oral Frequency: Daily Amount used: 1 pint of Bacardi/day, 10 Espino/beer bottles Age of first use: 21 Date of last use: 05/15/19 Cocaine Substance route: Inhalation Frequency: Daily Amount used: 2 bags Age of first use: 7 Date of last use: 05/15/19 Family Disease History - Family Disease History Family Disease History: Heart Disease: Mother ( at age 69) Admission Physical Exam BHS - Vital Signs Vital Signs: Vital Signs - 24 hr 05/16/19 09:35 Temperature 97.6 F Pulse Rate 75 Respiratory 14 Rate Blood Pressure 132/89 - Physical General Appearance: Yes: Tremorous, Sweating, Anxious HEENTM: Yes: Hearing grossly Normal, Normocephalic, Normal Voice Respiratory: Yes: Chest Non-Tender, Lungs Clear, Normal Breath Sounds, No Respiratory Distress, No Accessory Muscle Use Neck: Yes: No masses,lesions,Nodules Breast: Yes: Breast Exam Deferred Cardiology: Yes: Regular Rhythm, Regular Rate Abdominal: Yes: Normal Bowel Sounds, Non Tender, Flat Genitourinary: Yes: Within Normal Limits Back: Yes: Within Normal Limits, Normal Inspection Musculoskeletal: Yes: full range of Motion, Gait Steady, Pelvis Stable Extremities: Yes: Normal Capillary Refill, Normal Inspection Neurological: Yes: Alert, Normal Response Integumentary: Yes: Normal Color, Dry Lymphatic: Yes: Within Normal Limits - Diagnostic (1) Emphysema lung Current Visit: Yes Status: Chronic (2) Alcohol dependence with uncomplicated withdrawal Current Visit: Yes Status: Chronic (3) DM (diabetes mellitus), type 2 Current Visit: Yes Status: Chronic Qualifiers: Diabetes mellitus termite inspector insulin use: without retirement use Diabetes mellitus complication status: without complication Qualified Code(s): E11.9 - Type 2 diabetes mellitus without complications (4) Hypercholesterolemia Current Visit: Yes Status: Chronic (5) Nicotine dependence Current Visit: Yes Status: Chronic Qualifiers: Nicotine product type: cigarettes Substance use status: uncomplicated Qualified Code(s): F17.210 - Nicotine dependence, cigarettes, uncomplicated Cleared for Admission [facility] - Detox or Rehab [facility] Level of Care: Medically Managed Detox Regimen/Protocol: Librium Breathalyzer - Breathalyzer Breathalyzer: 0 Urine Drug Screen - Test Device Lot number: [id number] Expiration date: 02/20/21 - Control Is test valid?: Yes - Results Drug screen NEGATIVE: Yes Urine drug screen results: MOP-Opiates Inpatient Rehab Admission - Rehab Decision to Admit Inpatient rehab admission?: No
[2019-05-16] MEDS ORDERED: hydrOXYzine PAMOATE 25 MG CAPSULE (FP) PO PRN (10:31)
[2019-05-16] MEDS ORDERED: MENTHOL/PHENOL 1 EACH UD MM PRN (10:31)
[2019-05-16] MEDS ORDERED: MAGNESIUM HYDROX 2400MG/30ML ORAL SUSPENSION 30 ML CUP PO PRN (10:31)
[2019-05-16] MEDS ORDERED: IBUPROFEN 400 MG TABLET (FP) PO PRN (10:31)
[2019-05-16] MEDS ORDERED: METHOCARBAMOL 500 MG TABLET PO PRN (10:31)
[2019-05-16] MEDS ORDERED: BISMUTH SUBSALICYLATE 524 MG/30 ML UD PO PRN (10:31)
[2019-05-16] MEDS ORDERED: chlordiazePOXIDE HCL 25 MG CAPSULE PO PRN (10:31)
[2019-05-16] MEDS ORDERED: MELATONIN 5 MG TABLETS PO PRN (10:31)
[2019-05-16] MEDS ORDERED: MAG HYDROX/AL HYDROX/SIMETH 30 ML UNIT-DOSE CUP PO PRN (10:31)
[2019-05-16] MEDS ORDERED: ACETAMINOPHEN 325 MG TABLET (FP) PO PRN ×2 (10:31)
[2019-05-16] MEDS ORDERED: NICOTINE POLACRILEX 2 MG GUM BUC PRN (10:31)
[2019-05-16] MEDS ORDERED: MAGNESIUM CITRATE 300 ML BOTTLE PO PRN (10:31)
[2019-05-16] MEDS ORDERED: chlordiazePOXIDE HCL 25 MG CAPSULE PO ONE (11:45)
[2019-05-16] MEDS: chlordiazePOXIDE HCL 25 MG CAPSULE PO SCH ×3 (12:32→22:31)
[2019-05-16] MEDS ORDERED: INSULIN SLIDING SCALE (NOVOLOG) 1 VIAL SQ SCH (16:30)
[2019-05-16] MEDS: metFORMIN HCL 500 MG TABLET (FP) PO SCH (16:45)
[2019-05-16] MEDS: INSULIN SLIDING SCALE (NOVOLOG) 1 VIAL SQ SCH (16:46)
[2019-05-16] MEDS: THIAMINE HCL 100 MG TABLET (FP) PO SCH (22:31)
[2019-05-17] MEDS: metFORMIN HCL 500 MG TABLET (FP) PO SCH ×2 (06:02→17:02)
[2019-05-17] MEDS: chlordiazePOXIDE HCL 25 MG CAPSULE PO SCH ×4 (06:02→23:20)
[2019-05-17] MEDS: INSULIN SLIDING SCALE (NOVOLOG) 1 VIAL SQ SCH ×2 (07:29→19:47)
[2019-05-17 09:37] LABS: HEMATOCRIT 40.1 % (35.4-49); HEMOGLOBIN 13.5 GM/dL (11.7-16.9); MCH 29.2 pg (25.7-33.7); MCHC 33.6 g/dl (32.0-35.9); MEAN CELL VOLUME 86.8 fl (80-96); PLATELET COUNT 193 K/MM3 (134-434); RBC 4.62 M/mm3 (4.00-5.60); RDW 14.4 % (11.9-15.9); WHITE BLOOD COUNT 5.6 K/mm3 (4.0-10.0)
[2019-05-17 09:39] LABS: ALBUMIN 3.4 g/dl (3.4-5.0); BILIRUBIN,TOTAL 0.7 mg/dL (0.2-1); BLOOD UREA NITROGEN 13.3 mg/dL (7-18); CALCIUM 8.8 mg/dL (8.5-10.1); CREATININE 0.7 mg/dL (0.55-1.3); TOT PROT 6.5 g/dl (6.4-8.2)
[2019-05-17] MEDS: PRENATAL VITAMINS W/ FOLIC ACID TABLET (FP) PO SCH (10:36)
[2019-05-17] MEDS: NICOTINE 21 MG/24 HOURS TOPICAL PATCH TD SCH (10:37)
--- NOTE | 2019-05-17 10:44 | CONSULT ---
[facility] Psychiatric Consult - Data Date of interview: 05/17/19 Admission source: [facility] Identifying data: Mr Lagos is a 53 years old single male, unemployed receiving SSI, hoeless seeking detox treatment for alcohol and cocaine Substance Abuse History: Reports history of alcohol, cocaine and marijuana use. Refer to addiction counselor's summary for further information Medical History: Significant for COPD, hyperlipidemia, type 2 dabetes mellitus and orthosurgery for fracture left knee. Smokes cigarettes daily Psychiatric History: Patient is known to fiction and nonfiction writer prose from encounter during a previous admission to this facility in 2016. He remains a poor historian. Reportedly he was diagnosed with Schizophrenia in [place] in 1985. He has had multiple previous psychiatric hospitalizations. He is known to [facility], [facility], [facility], [place], [facility] and [facility]. Denies currently receiving outpatient psychiatric treatment nor taking psychotropic medications. He used to see psychiatrist at [facility] and he used to be prescribed Geodon 40 mg po BID, Cogentin 2 mg po daily and Risperdal. Claims that he has been off medications for over 6 months. Requests to be ordered Zyprexa during this current admission. Denies previous suicidal attempt. At present, denies experiencing psychotic, manic or depressive symptoms, S/H ideations. However, reports sleeping poorly Physical/Sexual Abuse/Trauma History: Reportedly denied Mental Status Exam - Mental Status Exam Alert and Oriented to: Time, Place, Person Cognitive Function: Fair Patient Appearance: Well Groomed Mood: Hopeful, Euthymic Patient Behavior: Cooperative Speech Pattern: Garbled Voice Loudness: Normal Thought Process: Intact, Goal Oriented Hallucinations: Denies Suicidal Ideation: Denies Homicidal Ideation: Denies Insight/Judgement: Poor Sleep: Poorly Appetite: Good Muscle strength/Tone: Rigidity Gait/Station: Normal Psychiatric Findings - Problem List ([place] 1, 2,3) (1) Schizophrenia Current Visit: No Status: Chronic (2) Schizoaffective disorder Current Visit: Yes Status: Ruled-out (3) Substance-induced sleep disorder Current Visit: Yes Status: Acute (4) Alcohol dependence with uncomplicated withdrawal Current Visit: Yes Status: Acute (5) Cocaine dependence Current Visit: No Status: Acute Qualifiers: Substance use status: uncomplicated Qualified Code(s): F14.20 - Cocaine dependence, uncomplicated (6) Cannabis dependence Current Visit: No Status: Acute (7) Nicotine dependence Current Visit: Yes Status: Chronic Qualifiers: Nicotine product type: cigarettes Substance use status: uncomplicated Qualified Code(s): F17.210 - Nicotine dependence, cigarettes, uncomplicated (8) DM (diabetes mellitus), type 2 Current Visit: Yes Status: Chronic Qualifiers: Diabetes mellitus exterminator helper termite insulin use: without exterminator helper termite use Diabetes mellitus complication status: without complication Qualified Code(s): E11.9 - Type 2 diabetes mellitus without complications (9) Emphysema lung Current Visit: Yes Status: Chronic (10) Hypercholesterolemia Current Visit: Yes Status: Chronic - Initial Treatment Plan Initial Treatment Plan: 1) Start Zyprexa 10 mg po HS. 2) Continue inpatient detoxification
[2019-05-17] MEDS ORDERED: cloNIDine HCL 0.1 MG TABLET PO PRN (13:29)
--- NOTE | 2019-05-17 13:30 | PN ---
S CIWA - CIWA Score Nausea/Vomitin-Mild Nausea/No Vomiting Muscle Tremors: 4-Moderate,w/Arms Extend Anxiety: 3 Agitation: 2 Paroxysmal Sweats: 3 Orientation: 0-Oriented Tacttile Disturbances: 0-None Auditory Disturbances: 0-None Visual Disturbances: 0-None Headache: 0-None Present CIWA-Ar Total Score: 13 BHS Progress Note (SOAP) Subjective: Tremor, interrupted sleep, anxious Objective: 05/17/19 13:28 Last Vital Signs Temp Pulse Resp BP Pulse Ox 97.5 F L 75 17 135/79 05/17/19 13:02 05/17/19 13:02 05/17/19 13:02 05/17/19 13:02 Elevated b/p: denies htn Laboratory Tests 05/16/19 05/17/19 05/17/19 16:30 06:00 07:45 WBC 5.6 RBC 4.62 Hgb 13.5 Hct 40.1 MCV 86.8 MCH 29.2 MCHC 33.6 RDW 14.4 Plt Count 193 MPV 8.0 Sodium Potassium Chloride Carbon Dioxide Anion Gap BUN Creatinine Est GFR (CKD-EPI)AfAm Est GFR (CKD-EPI)NonAf POC Glucometer 97 133 Random Glucose Calcium Total Bilirubin AST ALT Alkaline Phosphatase Total Protein Albumin RPR Titer 05/17/19 05/17/19 07:45 07:45 WBC RBC Hgb Hct MCV MCH MCHC RDW Plt Count MPV Sodium 139 Potassium 4.0 Chloride 103 Carbon Dioxide 31 Anion Gap 5 L BUN 13.3 Creatinine 0.7 Est GFR (CKD-EPI)AfAm 125.75 Est GFR (CKD-EPI)NonAf 108.50 POC Glucometer Random Glucose 149 H Calcium 8.8 Total Bilirubin 0.7 AST 19 ALT 35 Alkaline Phosphatase 74 Total Protein 6.5 Albumin 3.4 RPR Titer Nonreactive Labs reviewed Assessment: 05/17/19 13:28 Withdrawal sxs Elevated b/p and elevated glucose Plan: Continue detox Encouraged PO water intake Elevated b/p: clonidine prn Elevated glucose due to DMT2: continue diabetic regimen, encouraged adherence to diabetic diet
[2019-05-17] MEDS: THIAMINE HCL 100 MG TABLET (FP) PO SCH (22:32)
[2019-05-17] MEDS: OLANZapine 10 MG TABLET PO SCH (23:09)
[2019-05-18] MEDS: metFORMIN HCL 500 MG TABLET (FP) PO SCH ×2 (06:20→17:11)
[2019-05-18] MEDS: chlordiazePOXIDE HCL 25 MG CAPSULE PO SCH ×4 (06:21→22:40)
--- NOTE | 2019-05-18 10:53 | PN ---
S CIWA - CIWA Score Nausea/Vomitin-Mild Nausea/No Vomiting Muscle Tremors: 3 Anxiety: 2 Agitation: 2 Paroxysmal Sweats: 2 Orientation: 0-Oriented Tacttile Disturbances: 0-None Auditory Disturbances: 0-None Visual Disturbances: 0-None Headache: 1-Very Mild CIWA-Ar Total Score: 11 BHS Progress Note (SOAP) Subjective: Pt states doing well on alcohol withdrawal protocol- some withdrawal Sx O: Vital Signs - 24 hr 05/17/19 05/17/19 05/17/19 13:02 16:55 21:14 Temperature 97.5 F L 97.3 F L 98.4 F Pulse Rate 75 86 89 Respiratory 17 17 20 Rate Blood Pressure 135/79 121/73 133/90 05/18/19 05/18/19 05/18/19 00:30 03:30 06:00 Temperature 97.7 F Pulse Rate 72 Respiratory 18 18 18 Rate Blood Pressure 112/72 05/18/19 09:07 Temperature 96.8 F L Pulse Rate 62 Respiratory 18 Rate Blood Pressure 111/67 Laboratory Tests 05/16/19 05/17/19 05/17/19 16:30 06:00 07:45 WBC 5.6 RBC 4.62 Hgb 13.5 Hct 40.1 MCV 86.8 MCH 29.2 MCHC 33.6 RDW 14.4 Plt Count 193 MPV 8.0 Sodium Potassium Chloride Carbon Dioxide Anion Gap BUN Creatinine Est GFR (CKD-EPI)AfAm Est GFR (CKD-EPI)NonAf POC Glucometer 97 133 Random Glucose Calcium Total Bilirubin AST ALT Alkaline Phosphatase Total Protein Albumin RPR Titer 05/17/19 05/17/19 05/17/19 07:45 07:45 16:58 WBC RBC Hgb Hct MCV MCH MCHC RDW Plt Count MPV Sodium 139 Potassium 4.0 Chloride 103 Carbon Dioxide 31 Anion Gap 5 L BUN 13.3 Creatinine 0.7 Est GFR (CKD-EPI)AfAm 125.75 Est GFR (CKD-EPI)NonAf 108.50 POC Glucometer 109 Random Glucose 149 H Calcium 8.8 Total Bilirubin 0.7 AST 19 ALT 35 Alkaline Phosphatase 74 Total Protein 6.5 Albumin 3.4 RPR Titer Nonreactive 05/18/19 06:17 WBC RBC Hgb Hct MCV MCH MCHC RDW Plt Count MPV Sodium Potassium Chloride Carbon Dioxide Anion Gap BUN Creatinine Est GFR (CKD-EPI)AfAm Est GFR (CKD-EPI)NonAf POC Glucometer 102 Random Glucose Calcium Total Bilirubin AST ALT Alkaline Phosphatase Total Protein Albumin RPR Titer alert /oriented ambulatory a/p: continue alcohol detox protocol pt would like to continue with rehab after detox
[2019-05-18] MEDS: PRENATAL VITAMINS W/ FOLIC ACID TABLET (FP) PO SCH (11:03)
[2019-05-18] MEDS: NICOTINE 21 MG/24 HOURS TOPICAL PATCH TD SCH (11:03)
[2019-05-18] MEDS: INSULIN SLIDING SCALE (NOVOLOG) 1 VIAL SQ SCH (17:12)
[2019-05-18] MEDS: OLANZapine 10 MG TABLET PO SCH (22:38)
[2019-05-18] MEDS: THIAMINE HCL 100 MG TABLET (FP) PO SCH (22:39)
[2019-05-19] MEDS ORDERED: chlordiazePOXIDE HCL 10 MG CAPSULE PO PRN
[2019-05-19] MEDS: chlordiazePOXIDE HCL 10 MG CAPSULE PO SCH ×4 (05:38→22:50)
[2019-05-19] MEDS: metFORMIN HCL 500 MG TABLET (FP) PO SCH ×2 (07:19→17:21)
[2019-05-19] MEDS: INSULIN SLIDING SCALE (NOVOLOG) 1 VIAL SQ SCH ×2 (07:20→17:25)
[2019-05-19] MEDS: PRENATAL VITAMINS W/ FOLIC ACID TABLET (FP) PO SCH (10:45)
[2019-05-19] MEDS: NICOTINE 21 MG/24 HOURS TOPICAL PATCH TD SCH (10:46)
--- NOTE | 2019-05-19 11:46 | PN ---
S CIWA - CIWA Score Nausea/Vomitin Muscle Tremors: 2 Anxiety: 2 Agitation: 2 Paroxysmal Sweats: No Perspiration Orientation: 0-Oriented Tacttile Disturbances: 1-Very Mild Itch/Numbness Auditory Disturbances: 0-None Visual Disturbances: 0-None Headache: 1-Very Mild CIWA-Ar Total Score: 10 BHS Progress Note (SOAP) Subjective: alert,irritable,anxious,interrupted sleep,pain in the body Objective: 05/19/19 11:46 Vital Signs Temperature 97.7 F 05/19/19 09:22 Pulse Rate 85 05/19/19 09:22 Respiratory Rate 16 05/19/19 09:22 Blood Pressure 113/72 05/19/19 09:22 O2 Sat by Pulse Oximetry (%) Assessment: 05/19/19 11:46 withdrawal symptom Plan: continue detox librium regimen
[2019-05-19] MEDS: OLANZapine 10 MG TABLET PO SCH (22:46)
[2019-05-19] MEDS: THIAMINE HCL 100 MG TABLET (FP) PO SCH (22:47)
[2019-05-20] MEDS ORDERED: chlordiazePOXIDE HCL 10 MG CAPSULE PO SCH (05:00)
[2019-05-20] MEDS: metFORMIN HCL 500 MG TABLET (FP) PO SCH (06:58)
[2019-05-20] MEDS: INSULIN SLIDING SCALE (NOVOLOG) 1 VIAL SQ SCH ×2 (07:02→08:03)
--- NOTE | 2019-05-20 09:10 | PN ---
[facility] CIWA - CIWA Score Nausea/Vomitin-No Nausea/No Vomiting Muscle Tremors: 1-None Visible, but Luke Anxiety: 1-Mildly Anxious Agitation: 1-Slight > Activity Paroxysmal Sweats: No Perspiration Orientation: 0-Oriented Tacttile Disturbances: 0-None Auditory Disturbances: 0-None Visual Disturbances: 0-None Headache: 0-None Present CIWA-Ar Total Score: 3 BHS Progress Note (SOAP) Subjective: alert,no complaint Objective: 05/20/19 09:08 Vital Signs Temperature 97.3 F L 05/20/19 07:15 Pulse Rate 77 05/20/19 07:15 Respiratory Rate 18 05/20/19 07:15 Blood Pressure 124/58 L 05/20/19 07:15 O2 Sat by Pulse Oximetry (%) 05/20/19 09:08 glucose 118 Assessment: 05/20/19 09:09 detox completed,no withdrawal symptom Plan: discharge today,follow up with [facility]
--- NOTE | 2019-05-20 09:11 | DS ---
[facility] Detox Discharge Summary Admission Date: 05/16/19 Discharge Date: 05/20/19 - History Present History: Alcohol Dependence Additional Comments: follow up with [facility] Pertinent Past History: type2 dm copd nicotine dependence hypercholesterolemia schizophrenia - Physical Exam Results Vital Signs: Vital Signs Temperature 97.3 F L 05/20/19 07:15 Pulse Rate 77 05/20/19 07:15 Respiratory Rate 18 05/20/19 07:15 Blood Pressure 124/58 L 05/20/19 07:15 O2 Sat by Pulse Oximetry (%) Pertinent Admission Physical Exam Findings: withdrawal signs and symptom - Treatment Hospital Course: Detox Protocol Followed, Detoxed Safely, Responded well, Discharged Condition Good, Rehab Referral Accepted Patient has Accepted a Rehab Referral to: [facility] - Medication Discharge Medications: Ambulatory Orders Benztropine Mesylate [Cogentin -] 2 mg PO HS 12/24/16 Ziprasidone [Geodon -] 40 mg PO HS 12/24/16 metFORMIN HCL [Glucophage -] 500 mg PO BID #60 tablet 05/20/19 - Diagnosis (1) Alcohol dependence with uncomplicated withdrawal Current Visit: Yes Status: Acute (2) DM (diabetes mellitus), type 2 Current Visit: Yes Status: Chronic Qualifiers: Diabetes mellitus rodent exterminator insulin use: without rodent exterminator use Diabetes mellitus complication status: without complication Qualified Code(s): E11.9 - Type 2 diabetes mellitus without complications (3) Hypercholesterolemia Current Visit: Yes Status: Chronic (4) Nicotine dependence Current Visit: Yes Status: Chronic Qualifiers: Nicotine product type: cigarettes Substance use status: uncomplicated Qualified Code(s): F17.210 - Nicotine dependence, cigarettes, uncomplicated (5) Schizophrenia Current Visit: Yes Status: Acute - AMA Did Patient Leave Against Medical Advice: No
[2019-05-20 09:21] VITALS: BP 130/77; PULSE 70; TEMP 97.4
[2019-05-21] MEDS ORDERED: chlordiazePOXIDE HCL 10 MG CAPSULE PO ONE (05:00)
== END 2019-05-20 09:23 | disposition home or self-care (01) | DRG 774 ==
LOC: YASAS 09:05 → Y6N 11:09
PROVIDERS: ADMIT Surgery; ATTEND Surgery
PROC: HZ2ZZZZ Detoxification Services for Substance Abuse Treatment (ICD-10-PCS; principal; 2019-05-16)
DX: F10.230 Alcohol dependence with withdrawal, uncomplicated (principal); F14.20 Cocaine dependence, uncomplicated; F12.20 Cannabis dependence, uncomplicated; F17.210 Nicotine dependence, cigarettes, uncomplicated; F20.0 Paranoid schizophrenia; F25.9 Schizoaffective disorder, unspecified; F19.282 Other psychoactive substance dependence with psychoactive substance-induced sleep disorder; E11.65 Type 2 diabetes mellitus with hyperglycemia; E78.00 Pure hypercholesterolemia, unspecified; R03.0 Elevated blood-pressure reading, without diagnosis of hypertension; J43.9 Emphysema, unspecified; Z98.84 Bariatric surgery status; Z59.0 Homelessness
CPT/HCPCS: 36415; 71046-TC-FY; 80053; 82962; 85027; 86593; 87389

== ENCOUNTER 2019-06-23 13:21 | Inpatient (IN) | payer OTHER ==
[2019-06-23 14:39] VITALS: BMI 21.9
--- NOTE | 2019-06-23 15:16 | HP ---
CIWA Score Nausea/Vomitin-Mild Nausea/No Vomiting Muscle Tremors: 1-None Visible, but [place] Anxiety: 1-Mildly Anxious Agitation: 1-Slight > Activity Paroxysmal Sweats: No Perspiration Orientation: 0-Oriented Tacttile Disturbances: 2-Mild Itch/Numbness/Burn Auditory Disturbances: 2-Mild Harshness/Frighten Visual Disturbances: 2-Mild Sensitivity Headache: 2-Mild CIWA-Ar Total Score: 12 - Admission Criteria OASAS Guidelines: Admission for Medically Managed Detox: Requires at least one of the followin. CIWA greater than 12 2. Seizures within the past 24 hours 3. Delirium tremens within the past 24 hours 4. Hallucinations within the past 24 hours 5. Acute intervention needed for co occurring medical disorder 6. Acute intervention needed for co occurring psychiatric disorder 7. Severe withdrawal that cannot be handled at a lower level of care (continued vomiting, continued diarrhea, abnormal vital signs) requiring intravenous medication and/or fluids 8. Admitting History and Physical - Smoking History Smoking history: Current every day smoker Have you smoked in the past 12 months: Yes Aproximately how many cigarettes per day: 20 - Alcohol/Substance Use Hx Alcohol Use: Yes Admission ROS S - HPI Allergies/Adverse Reactions: Allergies Allergy/AdvReac Type Severity Reaction Status Date / Time No Known Allergies Allergy Verified 06/23/19 14:27 History of Present Illness: pt here requesting detox from etoh use , reports 6 beers/day , latest use yesterday , reports tremors if not drinking , denies seizures or blackouts . PMHX : DM II on Metformin latest taken > 30 days ( not since last admission at this facility April 2019 ) Exam Limitations: No Limitations - Ebola screening Have you traveled outside of the country in the last 21 days: No Have you had contact with anyone from an Ebola affected area: No Do you have a fever: No - Review of Systems Constitutional: No Symptoms Reported EENT: reports: Other (denies dysphagia) Respiratory: reports: No Symptoms reported Cardiac: reports: No Symptoms Reported GI: reports: See HPI : reports: No Symptoms Reported Musculoskeletal: reports: See HPI Integumentary: reports: See HPI Neuro: reports: Headache Endocrine: reports: See HPI Hematology: reports: No Symptoms Reported Psychiatric: reports: Orientated x3, Anxious Patient History - Patient Medical History Hx Anemia: No Hx Asthma: No Hx Chronic Obstructive Pulmonary Disease (COPD): No Hx Cancer: No Hx Cardiac Disorders: No Hx Congestive Heart Failure: No Hx Hypertension: Yes Hx Hypercholesterolemia: Yes (Not taking medications ) Hx Pacemaker: No HX Cerebrovascular Accident: No Hx Seizures: No Hx Dementia: No Hx Diabetes: Yes Hx Gastrointestinal Disorders: No Hx Liver Disease: No Hx Genitourinary Disorders: No Hx Sexually Transmitted Disorders: No Hx Renal Disease (ESRD): No Hx Thyroid Disease: No Hx Human Immunodeficiency Virus (HIV): No (last tested 2017 ) Hx Hepatitis C: No Hx Depression: No Hx Suicide Attempt: No Hx Bipolar Disorder: No Hx Schizophrenia: Yes - Patient Surgical History Past Surgical History: Yes Hx Neurologic Surgery: No Hx Cataract Extraction: No Hx Cardiac Surgery: No Hx Lung Surgery: No Hx Breast Surgery: No Hx Breast Biopsy: No Hx Abdominal Surgery: No Hx Appendectomy: No Hx Cholecystectomy: No Hx Genitourinary Surgery: No Hx Section: No Hx Orthopedic Surgery: Yes (fx, left knee) Anesthesia Reaction: No - PPD History Date: 12/26/16 Results: 0 mm - Smoking Cessation Smoking history: Current every day smoker Have you smoked in the past 12 months: Yes Aproximately how many cigarettes per day: 20 Cigars Per Day: 0 Hx Chewing Tobacco Use: No Initiated information on smoking cessation: No - Substances abused Alcohol Substance route: Oral Frequency: Daily Amount used: 5 nibs Liquor, 10beer bottles Age of first use: 16 Date of last use: 06/22/19 Cocaine Substance route: Inhalation Frequency: 3-6 times per week Amount used: 1bags Age of first use: 16 Date of last use: 06/19/19 Heroin Substance route: Inhalation Frequency: 1-2 times per week Amount used: 1-2BAGS Age of first use: 16 Date of last use: 06/20/19 Admission Physical Exam BHS - Vital Signs Vital Signs: Vital Signs - 24 hr 06/23/19 14:27 Temperature 97.7 F Pulse Rate 84 Respiratory 18 Rate Blood Pressure 107/73 - Physical General Appearance: Yes: Mild Distress, Anxious HEENTM: Yes: EOMI, Hearing grossly Normal, Normocephalic, Normal Voice Respiratory: Yes: Chest Non-Tender, Lungs Clear, Normal Breath Sounds, No Respiratory Distress, No Accessory Muscle Use Neck: Yes: No masses,lesions,Nodules, Trachea in good position Cardiology: Yes: Regular Rhythm, Regular Rate, S1, S2 Abdominal: Yes: Non Tender, Soft Musculoskeletal: Yes: Gait Steady Extremities: Yes: Normal Capillary Refill, Normal Inspection, Normal Range of Motion, Non-Tender Neurological: Yes: Fully Oriented, Alert, Motor Strength 5/5, Normal Mood/Affect Integumentary: Yes: Warm - Diagnostic (1) Alcohol dependence with uncomplicated withdrawal Current Visit: Yes Status: Chronic Breathalyzer - Breathalyzer Breathalyzer: 0 Urine Drug Screen - Test Device Lot number: [id number] Expiration date: 02/20/21 - Control Is test valid?: Yes - Results Drug screen NEGATIVE: Yes Urine drug screen results: MOP-Opiates Inpatient Rehab Admission - Rehab Decision to Admit Inpatient rehab admission?: No
[2019-06-23] MEDS ORDERED: hydrOXYzine PAMOATE 25 MG CAPSULE (FP) PO PRN (15:33)
[2019-06-23] MEDS ORDERED: MAGNESIUM CITRATE 300 ML BOTTLE PO PRN (15:33)
[2019-06-23] MEDS ORDERED: MAGNESIUM HYDROX 2400MG/30ML ORAL SUSPENSION 30 ML CUP PO PRN (15:33)
[2019-06-23] MEDS ORDERED: ACETAMINOPHEN 325 MG TABLET (FP) PO PRN ×2 (15:33)
[2019-06-23] MEDS ORDERED: MAG HYDROX/AL HYDROX/SIMETH 30 ML UNIT-DOSE CUP PO PRN (15:33)
[2019-06-23] MEDS ORDERED: MELATONIN 5 MG TABLETS PO PRN (15:33)
[2019-06-23] MEDS ORDERED: IBUPROFEN 400 MG TABLET (FP) PO PRN (15:33)
[2019-06-23] MEDS ORDERED: BISMUTH SUBSALICYLATE 524 MG/30 ML UD PO PRN (15:33)
[2019-06-23] MEDS ORDERED: MENTHOL/PHENOL 1 EACH UD MM PRN (15:33)
[2019-06-23] MEDS: INSULIN SLIDING SCALE (NOVOLOG) 1 VIAL SQ SCH (17:33)
[2019-06-23] MEDS: THIAMINE HCL 100 MG TABLET (FP) PO SCH (22:48)
[2019-06-24] MEDS: INSULIN SLIDING SCALE (NOVOLOG) 1 VIAL SQ SCH ×2 (06:38→16:45)
[2019-06-24] MEDS ORDERED: chlordiazePOXIDE HCL 10 MG CAPSULE PO PRN (10:41)
[2019-06-24 10:59] LABS: HEMOGLOBIN 15.1 GM/dL (11.7-16.9); MCH 28.9 pg (25.7-33.7); MCHC 33.5 g/dl (32.0-35.9); MEAN CELL VOLUME 86.1 fl (80-96); MEAN PLT VOLUME 7.9 fl (7.5-11.1); PLATELET COUNT 223 K/MM3 (134-434); RBC 5.22 M/mm3 (4.00-5.60); RDW 14.5 % (11.9-15.9); WHITE BLOOD COUNT 5.7 K/mm3 (4.0-10.0)
--- NOTE | 2019-06-24 11:00 | CONSULT ---
[facility] Psychiatric Consult - Data Date of interview: 06/24/19 Admission source: [facility] Identifying data: Patient is a 53 year old single [place] male, domiciled, without children, homeless, and is supported by [facility]. This is one of multiple admissions for patient. Patient admitted to for alcohol dependence. Substance Abuse History: Smoking Cessation. Smoking history: Current every day smoker. Have you smoked in the past 12 months: Yes. Aproximately how many cigarettes per day: 20. Cigars Per Day: 0. Hx Chewing Tobacco Use: No. Initiated information on smoking cessation: No. - Substances abused. Alcohol. Substance route: Oral. Frequency: Daily. Amount used: 5 nibs Liquor , 10beer bottles. Age of first use: 16. Date of last use: 06/22/19. Cocaine. Substance route: Inhalation. Frequency: 3-6 times per week. Amount used: 1bags. Age of first use: 16. Date of last use: 06/19/19. Heroin. Substance route: Inhalation. Frequency: 1-2 times per week. Amount used: 1- 2BAGS. Age of first use: 16. Date of last use: 06/20/19 Medical History: denies. Psychiatric History: Patient presents as a poor historian. Patient reports history of multiple psychiatric hospitalizations ([place] and many facilities in [place]). Diagnosis of Schizophrenia. Patient unable to recall medications prescribed to him in the past. Chart reviewed. Patient seen by Dr. Galaviz on 05/17/19. As per Dr. Galaviz's note patient was first diagnosed with schizophrenia in [place] in 1995. Patient has had multiple psychiatric hospitalizations ([place], [facility], [facility], [place], [facility] and [facility]) . Mr. Lagos used to see psychiatrist at [facility] and he used to be prescribed Geodon 40 mg po BID, Cogentin 2 mg po daily and Risperdal. Patient with a history of noncompliance to psychiatric treatment. Patient was prescribed zyprexa 10mg HS upon previous admission. At present, patient denies auditory/visual hallucinations, suicidal/homicidal ideation. Physical/Sexual Abuse/Trauma History: denies. Mental Status Exam - Mental Status Exam Alert and Oriented to: Time, Place, Person Cognitive Function: Good Patient Appearance: Well Groomed Mood: Irritable Affect: Mood Congruent Patient Behavior: Cooperative (Cooperative but slightly irritable. ) Speech Pattern: Clear Voice Loudness: Moderately Soft/Quiet Thought Process: Goal Oriented Thought Disorder: Not Present Hallucinations: Denies Suicidal Ideation: Denies Homicidal Ideation: Denies Insight/Judgement: Poor Sleep: Poorly Appetite: Fair Muscle strength/Tone: Normal Gait/Station: Normal Psychiatric Findings - Problem List ([place] 1, 2,3) (1) Alcohol dependence with uncomplicated withdrawal Current Visit: Yes Status: Chronic (2) Schizophrenia Current Visit: Yes Status: Chronic (3) Substance-induced sleep disorder Current Visit: Yes Status: Acute - Initial Treatment Plan Initial Treatment Plan: Psychoeducation provided. Detoxification in progress. Will order Zyprexa 5mg BID. Benefits and side effects discussed. Verbal consent given.
[2019-06-24 11:04] LABS: BILIRUBIN,TOTAL 0.8 mg/dL (0.2-1); BLOOD UREA NITROGEN 15.7 mg/dL (7-18); CALCIUM 8.9 mg/dL (8.5-10.1); CREATININE 0.8 mg/dL (0.55-1.3); POTASSIUM 4.1 mmol/L (3.5-5.1); TOT PROT 7.3 g/dl (6.4-8.2)
[2019-06-24] MEDS: PRENATAL VITAMINS W/ FOLIC ACID TABLET (FP) PO SCH (11:11)
[2019-06-24] MEDS ORDERED: FLU VACCINE QUAD 60 MCG/0.5 ML (MDV 19-20) IM ONE (12:00)
[2019-06-24] MEDS: chlordiazePOXIDE HCL 25 MG CAPSULE PO SCH ×2 (13:27→22:19)
[2019-06-24] MEDS: OLANZapine 5 MG TABLET PO SCH ×2 (14:03→22:19)
--- NOTE | 2019-06-24 14:37 | PN ---
S CIWA - CIWA Score Nausea/Vomitin Muscle Tremors: None Anxiety: 3 Agitation: 4-Moderately Restless Paroxysmal Sweats: No Perspiration Orientation: 0-Oriented Tacttile Disturbances: 0-None Auditory Disturbances: 1-Very Mild Visual Disturbances: 0-None Headache: 0-None Present CIWA-Ar Total Score: 13 BHS Progress Note (SOAP) Subjective: Nausea, Vomiting, Restless, Fatigue. Objective: PATIENT A & O X 3, OBSERVED AMBULATING ON DETOX UNIT UNASSISTED. IN NO ACUTE DISTRESS. 06/24/19 14:36 Vital Signs Temperature 97.5 F L 06/24/19 13:21 Pulse Rate 82 06/24/19 13:21 Respiratory Rate 18 06/24/19 13:21 Blood Pressure 109/67 06/24/19 13:21 O2 Sat by Pulse Oximetry (%) Laboratory Tests 06/23/19 06/24/19 06/24/19 15:59 06:35 08:00 WBC 5.7 RBC 5.22 Hgb 15.1 Hct 45.0 MCV 86.1 MCH 28.9 MCHC 33.5 RDW 14.5 Plt Count 223 MPV 7.9 Sodium Potassium Chloride Carbon Dioxide Anion Gap BUN Creatinine Est GFR (CKD-EPI)AfAm Est GFR (CKD-EPI)NonAf POC Glucometer 133 124 Random Glucose Calcium Total Bilirubin AST ALT Alkaline Phosphatase Total Protein Albumin RPR Titer HIV 1&2 Antibody Screen HIV P24 Antigen 06/24/19 06/24/19 06/24/19 08:00 08:00 08:00 WBC RBC Hgb Hct MCV MCH MCHC RDW Plt Count MPV Sodium 140 Potassium 4.1 Chloride 105 Carbon Dioxide 28 Anion Gap 7 L BUN 15.7 Creatinine 0.8 Est GFR (CKD-EPI)AfAm 119.04 Est GFR (CKD-EPI)NonAf 102.71 POC Glucometer Random Glucose 116 H Calcium 8.9 Total Bilirubin 0.8 AST 14 L ALT 28 Alkaline Phosphatase 75 Total Protein 7.3 Albumin 4.0 RPR Titer Nonreactive HIV 1&2 Antibody Screen Negative HIV P24 Antigen Negative LABS NOTED. Assessment: 06/24/19 14:37 WITHDRAWAL SYMPTOMS. Plan: CONTINUE DETOX. PRN ZOFRAN SL FOR NAUSEA / VOMITING.
[2019-06-24] MEDS: THIAMINE HCL 100 MG TABLET (FP) PO SCH (22:19)
[2019-06-25] MEDS: chlordiazePOXIDE HCL 25 MG CAPSULE PO SCH ×2 (05:11→05:15)
[2019-06-25] MEDS: INSULIN SLIDING SCALE (NOVOLOG) 1 VIAL SQ SCH (06:25)
--- NOTE | 2019-06-25 08:45 | PN ---
[facility] Progress Note Note: Patient requested to leave AMA, patient encourage to continue treatment to no avail. Patient advised on the risk of interrupting treatment which include relapse, overdose and . Patient advise if worsening symptoms are present to seek medical attention. Patient verbalizes understanding.
--- NOTE | 2019-06-25 08:48 | DS ---
[facility] Detox Discharge Summary Admission Date: 06/23/19 - History Additional Comments: Patient requested to leave AMA, patient encourage to continue treatment to no avail. Patient advised on the risk of interrupting treatment which include relapse, overdose and . Patient advise if worsening symptoms are present to seek medical attention. Patient to follow up with primary care provider within 1-2 days post discharge regarding DM II. Patient verbalizes understanding. Pertinent Past History: DM II Schizophrenia Alcohol use disorder opioid use disorder - Physical Exam Results Vital Signs: Vital Signs Temperature 97.4 F L 06/25/19 06:32 Pulse Rate 80 06/25/19 06:32 Respiratory Rate 18 06/25/19 06:32 Blood Pressure 104/71 06/25/19 06:32 O2 Sat by Pulse Oximetry (%) Pertinent Admission Physical Exam Findings: Patient Aox3 no acute distress Denies SI/HI, denies visual or auditory hallucinations no adventitious breath sounds full ROM, no gait abnormality skin intact, no edema or erythema - Treatment Hospital Course: Discharged Condition Good - Medication Discharge Medications: Ambulatory Orders Benztropine Mesylate [Cogentin -] 2 mg PO HS 12/24/16 Ziprasidone [Geodon -] 40 mg PO HS 12/24/16 metFORMIN HCL [Glucophage -] 500 mg PO BID #60 tablet 05/20/19 - Diagnosis (1) Substance-induced sleep disorder Current Visit: Yes Status: Acute (2) Alcohol dependence with uncomplicated withdrawal Current Visit: Yes Status: Chronic (3) Schizophrenia Current Visit: Yes Status: Chronic (4) Cocaine dependence Current Visit: No Status: Acute Qualifiers: Substance use status: uncomplicated Qualified Code(s): F14.20 - Cocaine dependence, uncomplicated (5) DM (diabetes mellitus), type 2 Current Visit: No Status: Chronic Qualifiers: 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
[2019-06-25 09:18] VITALS: BP 122/75; PULSE 69; TEMP 97.8
[2019-06-25] MEDS ORDERED: chlordiazePOXIDE HCL 10 MG CAPSULE PO PRN (10:45)
[2019-06-25] MEDS ORDERED: chlordiazePOXIDE 5 MG CAPSULE PO SCH (11:00)
[2019-06-25] MEDS: PRENATAL VITAMINS W/ FOLIC ACID TABLET (FP) PO SCH (11:11)
[2019-06-25] MEDS: OLANZapine 5 MG TABLET PO SCH (11:16)
[2019-06-26] MEDS ORDERED: chlordiazePOXIDE HCL 10 MG CAPSULE PO SCH (05:00)
[2019-06-27] MEDS ORDERED: chlordiazePOXIDE HCL 10 MG CAPSULE PO ONE (05:00)
== END 2019-06-25 08:53 | disposition left against medical advice (07) | DRG 770 ==
LOC: YASAS 13:21 → Y3N 16:44
PROVIDERS: ADMIT Surgery; ATTEND Surgery
PROC: HZ2ZZZZ Detoxification Services for Substance Abuse Treatment (ICD-10-PCS; principal; 2019-06-23)
DX: F10.230 Alcohol dependence with withdrawal, uncomplicated (principal); F14.20 Cocaine dependence, uncomplicated; F17.210 Nicotine dependence, cigarettes, uncomplicated; F19.282 Other psychoactive substance dependence with psychoactive substance-induced sleep disorder; F20.9 Schizophrenia, unspecified; I10 Essential (primary) hypertension; E11.9 Type 2 diabetes mellitus without complications; J43.9 Emphysema, unspecified; Z79.84 Long term (current) use of oral hypoglycemic drugs; Z59.0 Homelessness
CPT/HCPCS: 36415; 80053; 82962; 85027; 86593; 87389

== ENCOUNTER 2023-09-08 16:29 | Inpatient (IN) | payer OTHER ==
[2023-09-08 17:20] VITALS: BMI 18.8
[2023-09-08] MEDS ORDERED: BENZOCAINE/MENTHOL (CHLORASEPTIC ) LOZENGE MM PRN (19:20)
[2023-09-08] MEDS ORDERED: ONDANSETRON *ODT* 4 MG TABLET SL PRN (19:20)
[2023-09-08] MEDS ORDERED: MAGNESIUM HYDROX 2400MG/30ML ORAL SUSPENSION 30 ML CUP PO PRN (19:20)
[2023-09-08] MEDS ORDERED: IBUPROFEN 400 MG TABLET (FP) PO PRN (19:20)
[2023-09-08] MEDS ORDERED: LOPERAMIDE HCL 2 MG CAPSULE PO PRN (19:20)
[2023-09-08] MEDS ORDERED: NALOXONE HCL 0.4 MG/ML VIAL IM PRN (19:20)
[2023-09-08] MEDS ORDERED: BISMUTH SUBSALICYLATE 524 MG/30 ML PO PRN (19:20)
[2023-09-08] MEDS ORDERED: MAG HYDROX/AL HYDROX/SIMETH 30 ML UNIT-DOSE CUP PO PRN (19:20)
[2023-09-08] MEDS ORDERED: guaiFENesin 600 MG TABLET.ER (FP) PO PRN (19:20)
[2023-09-08] MEDS ORDERED: ACETAMINOPHEN 325 MG TABLET (FP) PO PRN (19:20)
[2023-09-08] MEDS ORDERED: NALOXONE HCL (KLOXXADO) 8 MG SPRAY NS PRN (19:20)
[2023-09-08] MEDS ORDERED: POLYETHYLENE GLYCOL (HEALTHYLAX) 3350 17 GM PACKET PO PRN (19:20)
[2023-09-08] MEDS ORDERED: METHOCARBAMOL 500 MG TABLET PO PRN (19:20)
[2023-09-08] MEDS ORDERED: hydrOXYzine PAMOATE 25 MG CAPSULE (FP) PO PRN (19:20)
[2023-09-08] MEDS ORDERED: DICYCLOMINE HCL 10 MG CAPSULE PO PRN (19:20)
[2023-09-08] MEDS ORDERED: IBUPROFEN 600 MG TABLET (FP) PO PRN (19:20)
[2023-09-08] MEDS ORDERED: BENZONATATE 200 MG CAPSULE PO PRN (19:20)
[2023-09-08] MEDS: THIAMINE HCL 100 MG TABLET (FP) PO SCH (21:25)
[2023-09-08] MEDS: MELATONIN 5 MG TABLETS PO SCH (21:25)
[2023-09-09] MEDS ORDERED: diazePAM 5 MG TABLET PO PRN (10:43)
[2023-09-09] MEDS: PRENATAL VITAMINS W/ FOLIC ACID TABLET (FP) PO SCH (10:50)
[2023-09-09 11:36] LABS: HEMATOCRIT 39.1 % (35.4-49); HEMOGLOBIN 12.7 GM/dL (11.7-16.9); MCH 28.1 pg (25.7-33.7); MCHC 32.4 g/dl (32.0-35.9); MEAN CELL VOLUME 86.6 fl (80-96); MEAN PLT VOLUME 7.3 fl (7.5-11.1); PLATELET COUNT 234 10^3/uL (134-434); RBC 4.51 M/mm3 (4.00-5.60); RDW 14.7 % (11.9-15.9); WHITE BLOOD COUNT 5.4 K/mm3 (4.0-10.0)
[2023-09-09] MEDS: diazePAM 5 MG TABLET PO SCH ×3 (11:44→22:51)
[2023-09-09 11:45] LABS: CHLORIDE 102 mmol/L (98-107); SODIUM 136 mmol/L (136-145)
[2023-09-09 11:46] LABS: ALBUMIN 3.2 g/dl (3.4-5.0); ANION GAP 3 mmol/L (4-13); BLOOD UREA NITROGEN 14.1 mg/dL (7-18); CO2 31 mmol/L (21-32); GLUCOSE,RANDOM 177 mg/dL (74-106)
[2023-09-09 11:49] LABS: CREATININE 0.7 mg/dL (0.55-1.3); SGOT/AST 22 U/L (15-37); SGPT/ALT 21 U/L (13-61)
[2023-09-09 11:50] LABS: TOT PROT 6.2 g/dl (6.4-8.2)
[2023-09-09 11:52] LABS: ALK PHOS 90 U/L (45-117)
[2023-09-09 11:53] LABS: BILIRUBIN,TOTAL 0.5 mg/dL (0.2-1)
[2023-09-09] MEDS: THIAMINE HCL 100 MG TABLET (FP) PO SCH (22:51)
[2023-09-09] MEDS: OLANZapine 10 MG TABLET PO SCH (22:51)
[2023-09-09] MEDS: MELATONIN 5 MG TABLETS PO SCH (23:10)
[2023-09-10] MEDS: diazePAM 5 MG TABLET PO SCH ×4 (05:46→22:27)
[2023-09-10] MEDS: PRENATAL VITAMINS W/ FOLIC ACID TABLET (FP) PO SCH (10:48)
[2023-09-10] MEDS: THIAMINE HCL 100 MG TABLET (FP) PO SCH (22:26)
[2023-09-10] MEDS: MELATONIN 5 MG TABLETS PO SCH (22:26)
[2023-09-10] MEDS: OLANZapine 10 MG TABLET PO SCH (22:28)
[2023-09-11] MEDS: diazePAM 5 MG TABLET PO SCH ×3 (05:32→22:24)
[2023-09-11] MEDS: PRENATAL VITAMINS W/ FOLIC ACID TABLET (FP) PO SCH (10:20)
[2023-09-11] MEDS: metFORMIN HCL 500 MG TABLET (FP) PO SCH (16:41)
[2023-09-11] MEDS: THIAMINE HCL 100 MG TABLET (FP) PO SCH (22:24)
[2023-09-11] MEDS: OLANZapine 10 MG TABLET PO SCH (22:24)
[2023-09-11] MEDS: MELATONIN 5 MG TABLETS PO SCH (22:25)
[2023-09-12] MEDS ORDERED: diazePAM 5 MG TABLET PO SCH (06:00)
[2023-09-12] MEDS: metFORMIN HCL 500 MG TABLET (FP) PO SCH (06:03)
[2023-09-12 09:27] VITALS: RESP 18; TEMP 97.3
[2023-09-12] MEDS: PRENATAL VITAMINS W/ FOLIC ACID TABLET (FP) PO SCH (09:33)
[2023-09-12 12:48] VITALS: BP 120/76; PULSE 87
[2023-09-13] MEDS ORDERED: diazePAM 5 MG TABLET PO ONE (06:00)
== END 2023-09-12 14:53 | disposition home or self-care (01) | DRG 775 ==
LOC: YASAS 16:29 → Y3N 19:12 → Y6N 09-09 19:04
PROVIDERS: ADMIT Allergy & Immunology; ATTEND Surgery
PROC: HZ2ZZZZ Detoxification Services for Substance Abuse Treatment (ICD-10-PCS; principal; 2023-09-08)
DX: F10.230 Alcohol dependence with withdrawal, uncomplicated (principal); F17.210 Nicotine dependence, cigarettes, uncomplicated; F20.9 Schizophrenia, unspecified; F10.282 Alcohol dependence with alcohol-induced sleep disorder; E78.5 Hyperlipidemia, unspecified; E11.9 Type 2 diabetes mellitus without complications; I10 Essential (primary) hypertension; J45.909 Unspecified asthma, uncomplicated; Z79.84 Long term (current) use of oral hypoglycemic drugs; Z20.822 Contact with and (suspected) exposure to COVID-19
CPT/HCPCS: 36415; 80053; 80307; 82962; 85027; 86780; 87635